=== PATIENT | female | born 1945 | race Caucasian/White ===

== ENCOUNTER 2017-02-18 08:34 | Day surgery (SDC) | payer MEDICARE, BC ==
[2017-02-16 10:43] VITALS: BMI 31.3
--- NOTE | 2017-02-18 08:21 | P.GSHP ---
History of Present Illness H&P Date: 02/18/17 CHIEF COMPLAINT: Colon screen HISTORY OF PRESENT ILLNESS: The patient is a 71-year-old female who presents for colon screen. Lower endoscopy was offered for further evaluation and management. PAST MEDICAL HISTORY: Please see list. PAST SURGICAL HISTORY: Please see list. MEDICATIONS: Please see list. ALLERGIES: Please see list. SOCIAL HISTORY: No illicit drug use FAMILY HISTORY: No reports of Crohn disease or ulcerative colitis. REVIEW OF ORGAN SYSTEMS: CONSTITUTIONAL: No reports of fevers or chills. PHYSICAL EXAM: VITAL SIGNS: Stable GENERAL: Well-developed pleasant in no acute distress. HEENT: No scleral icterus. Extraocular movements grossly intact. Moist buccal mucosa. NECK: Supple without lymphadenopathy. CHEST: Unlabored respirations. Equal bilateral excursions. CARDIOVASCULAR: Regular rate and rhythm. Distal 2+ pulses. ABDOMEN: Soft, nontender, nondistended. MUSCULOSKELETAL: No clubbing, cyanosis, or edema. ASSESSMENT: 1. Colon screen. PLAN: 1. Recommend proceeding with a lower endoscopy Past Medical History Past Medical History: Hypertension, Osteoarthritis (OA) History of Any Multi-Drug Resistant Organisms: None Reported Past Surgical History: Appendectomy, Joint Replacement Additional Past Surgical History / Comment(s): Both knees & hips replaced; cataracts; colonoscopy Past Anesthesia/Blood Transfusion Reactions: Postoperative Nausea & Vomiting ( PONV) Smoking Status: Never smoker Past Alcohol Use History: None Reported Past Drug Use History: None Reported - Past Family History Daughter(s) Family Medical History: Cancer Medications and Allergies Home Medications Medication Instructions Recorded Confirmed Type Ascorbic Acid [Vitamin C] 1,000 mg PO DAILY 02/16/17 02/16/17 History Lisinopril-Hctz 20-25 mg 1 tab PO DAILY 02/16/17 02/16/17 History [Zestoretic 20-25] Loratadine [Claritin] 10 mg PO DAILY 02/16/17 02/16/17 History Multivitamins, Thera [Multivitamin 1 tab PO DAILY 02/16/17 02/16/17 History (formulary)] Ubidecarenone [Co Q-10] 100 mg PO DAILY 02/16/17 02/16/17 History amLODIPine [Norvasc] 5 mg PO DAILY 02/16/17 02/16/17 History Allergies Allergy/AdvReac Type Severity Reaction Status Date / Time morphine AdvReac Unknown Verified 02/16/17 10:36 Penicillins AdvReac Unknown Verified 02/16/17 10:36 Childhood tramadol [From Ultram] AdvReac increased Verified 02/16/17 10:36 BP
[~2017-02-18 08:34] MED LIST: LACTATED RINGERS 1,000 ML IV SCH; LIDOCAINE 1% 20 ML VIAL (10MG/ML) FOR IV START INTRADERMA PRN
[2017-02-18 09:00] VITALS: TEMP 97.6
[2017-02-18] MEDS ORDERED: PROPOFOL 10 MG/ML 20 ML VIAL IV ONE (09:49)
[2017-02-18 10:47] VITALS: BP 110/72; PULSE 67; RESP 18
--- NOTE | 2017-02-18 10:48 | P.PCN ---
Date of Procedure: 02/18/17 Description of Procedure: PREOPERATIVE DIAGNOSIS: Colonoscopy screening. POSTOPERATIVE DIAGNOSIS: Colonoscopy screening. Multiple tubular adenomas. External hemorrhoids. OPERATION: Colonoscopy to the ileocecal valve and appendiceal orifice. Colonoscopy with snare polypectomy. Colonoscopy with cold forceps biopsy. SURGEON: Krissy Roberson MD. ANESTHESIA: MAC. INDICATIONS: The patient is a 71-year-old female who presents for colonoscopy screening. Her last colonoscopy was over 20 years ago. Benefits and risks were described and informed consent was obtained. DESCRIPTION OF PROCEDURE: The patient had undergone Gatorade, MiraLAX and Dulcolax prep. She had been brought into the operating room and laid in the left lateral decubitus position. After adequate intravenous sedation, the rectum was examined with 2% lidocaine jelly. External hemorrhoids were encountered. The rectal tone was within normal limits. No lesions were palpated in the rectal vault. An Olympus colonoscope was advanced until the ileocecal valve and appendiceal orifice were clearly viewed. The prep was excellent with clear visualization of the mucosal folds. The scope was removed with visualization of each mucosal fold. No moderate scattered diverticulosis was encountered. At the cecum, a 4 mm adenoma , tubulovillous type, was snare polypectomy. At 25 cm from the anal verge, a 6 mm tubular adenoma with snare polypectomy. At 22 cm, a 3 mm hyperplastic polyp was cold forceps biopsy. No evidence of focal colitis was found. Retroflexion of the scope demonstrated grade 2 internal hemorrhoids without active bleeding or inflammation. The colon was desufflated. The patient had tolerated the procedure well. Withdrawal time was over 6 minutes. FINDINGS: Internal hemorrhoids, grade 2. External prolapsed hemorrhoids, grade 2. No arteriovenous malformations. At the cecum, a 4 mm adenoma, tubulovillous type, was snare polypectomy. At 25 cm from the anal verge, a 6 mm tubular adenoma with snare polypectomy. At 22 cm, a 3 mm hyperplastic polyp was cold forceps biopsy. No focal colitis. No diffuse diverticulosis. RECOMMENDATIONS: Lower endoscopy in 2 years, 2019 for higher risk colon polyps. Plan - Discharge Summary Discharge Medication List Ascorbic Acid [Vitamin C] 1,000 mg PO DAILY 02/16/17 [History] Lisinopril-Hctz 20-25 mg [Zestoretic 20-25] 1 tab PO DAILY 02/16/17 [History] Loratadine [Claritin] 10 mg PO DAILY 02/16/17 [History] Multivitamins, Thera [Multivitamin (formulary)] 1 tab PO DAILY 02/16/17 [History ] Ubidecarenone [Co Q-10] 100 mg PO DAILY 02/16/17 [History] amLODIPine [Norvasc] 5 mg PO DAILY 02/16/17 [History] Follow up Appointment(s)/Referral(s): Krissy Roberson MD [STAFF PHYSICIAN] - 03/03/17 1:40 pm Patient Instructions/Handouts: *[facility] - (Anesthesia) Endoscopy Discharge Instructions, Colonoscopy (DC), Colorectal Polyps (GEN) Activity/Diet/Wound Care/Special Instructions: Follow-up colonoscopy in 2 years, 2019 Discharge Disposition: HOME SELF-CARE
== END 2017-02-18 11:06 | disposition home or self-care (01) ==
LOC: ORWHC2ENDO 08:34
PROVIDERS: ATTEND Surgery Plastic and Reconstructive Surgery
DX: Z12.11 Encounter for screening for malignant neoplasm of colon (principal); D12.0 Benign neoplasm of cecum; D12.5 Benign neoplasm of sigmoid colon; K63.5 Polyp of colon; K64.1 Second degree hemorrhoids; I10 Essential (primary) hypertension; Z79.899 Other long term (current) drug therapy; Z88.5 Allergy status to narcotic agent; Z88.0 Allergy status to penicillin
CPT/HCPCS: 88305; 45380; 45385; J2704

== ENCOUNTER → 2017-08-07 | Outpatient (CLI) | payer MEDICARE, BC ==
--- NOTE | 2017-08-17 07:32 | MM ---
Reason for exam: screening (asymptomatic). Last mammogram was performed 2 years and 5 months ago. History: Patient is postmenopausal. Family history of breast cancer in maternal aunt. Physical Findings: A clinical breast exam by your physician is recommended on an annual basis and results should be correlated with mammographic findings. MG 3D Screening Mammo W/Cad Bilateral CC and MLO view(s) were taken. Prior study comparison: March 19, 2015, mammogram, performed at [facility]. November 02, 2013, mammogram, performed at [facility]. There are scattered fibroglandular densities. Stable benign appearing masses and calcifications. No suspicious abnormality. No significant changes when compared with prior studies. ASSESSMENT: Benign, BI-RAD 2 RECOMMENDATION: Routine screening mammogram of both breasts in 1 year.
== END | disposition home or self-care (01) ==
LOC: RADMAMWWP 16:16
PROVIDERS: ATTEND Family Medicine
DX: Z12.31 Encounter for screening mammogram for malignant neoplasm of breast (principal)
CPT/HCPCS: 77063; G0202

== ENCOUNTER → 2018-08-31 | Outpatient (CLI) | payer MEDICARE, BC ==
--- NOTE | 2018-09-02 10:02 | MM ---
Reason for exam: screening (asymptomatic). Last mammogram was performed 1 year and 1 month ago. History: Patient is postmenopausal. Family history of breast cancer in maternal aunt. MG 3D Screening Mammo W/Cad Bilateral CC and MLO view(s) were taken. Prior study comparison: August 07, 2017, bilateral MG 3d screening mammo w/cad. March 19, 2015, mammogram, performed at [facility]. There are scattered fibroglandular densities. No significant changes when compared with prior studies. ASSESSMENT: Benign, BI-RAD 2 RECOMMENDATION: Routine screening mammogram of both breasts in 1 year.
== END | disposition home or self-care (01) ==
LOC: RADMAMWWP 13:34
PROVIDERS: ATTEND Family Medicine
DX: Z12.31 Encounter for screening mammogram for malignant neoplasm of breast (principal)
CPT/HCPCS: 77063; 77067

== ENCOUNTER → 2019-11-18 | Outpatient (CLI) | payer MEDICARE, BC ==
--- NOTE | 2019-11-21 14:35 | MM ---
Reason for exam: screening (asymptomatic). Last mammogram was performed 1 year and 3 months ago. History: Patient is postmenopausal. Family history of breast cancer in maternal aunt. Physical Findings: A clinical breast exam by your physician is recommended on an annual basis and results should be correlated with mammographic findings. MG 3D Screening Mammo W/Cad Bilateral CC and MLO view(s) were taken. Prior study comparison: August 31, 2018, bilateral MG 3d screening mammo w/cad. August 07, 2017, bilateral MG 3d screening mammo w/cad. The breast tissue is heterogeneously dense. This may lower the sensitivity of mammography. Stable benign calcifications. There is no discrete abnormality. No significant changes when compared with prior studies. ASSESSMENT: Benign, BI-RAD 2 RECOMMENDATION: Routine screening mammogram of both breasts in 1 year.
== END | disposition home or self-care (01) ==
LOC: RADMAMWWP 13:59
PROVIDERS: ATTEND Family Medicine
DX: Z12.31 Encounter for screening mammogram for malignant neoplasm of breast (principal)
CPT/HCPCS: 77063; 77067

== ENCOUNTER → 2020-07-05 | Outpatient (CLI) | payer MEDICARE, BC ==
--- NOTE | 2020-07-09 18:19 | BD ---
EXAMINATION TYPE: Axial Bone Density DATE OF EXAM: 07/05/2020 COMPARISON: NONE CLINICAL HISTORY: Postmenopausal screening Height: 66 Weight: 198.7 FRAX RISK QUESTIONS: Alcohol (3 or more units per day): no Family History (Parent hip fracture): no Glucocorticoids (More than 3mos): no (Ex: prednisone, prednisolone, methylprednisolone, dexamethasone, and hydrocortisone). History of Fracture in Adulthood: yes Secondary Osteoporosis: 1. Type 1 Diabetes: no 2. Hyperthyroidism: no 3. Menopause before 45: no 4. Malnutrition: no 5. Chronic liver disease: no Rheumatoid Arthritis: no Current Tobacco Use: no RISK FACTORS HISTORY OF: Surgery to Spine/Hip(right/left)/Wrist (right/left): bilateral hip surgery When: Family History of Osteoporosis: yes Active: yes Diet low in dairy products/other sources of calcium: no Postmenopausal woman: age 53 Lost more than 2 inches in height since high school: just about 2 inches MEDICATIONS: metformin, cholesterol meds, lisinopril, Norvasc, water pil Additional History: EXAM MEASUREMENTS: Bone mineral densitometry was performed using the MOOVIA System. Bone mineral density as measured about the Lumbar spine is: ----- L1-L4(G/cm2): 1.360 T Score Values are as follows: ----- L2: 1.3 ----- L3: 1.5 ----- L4: 2.2 ----- L1-L4: 1.5 Bone mineral density : baseline Bone mineral density about the L Wrist (g/cm2): 0.677 T Score values are as follows: -----Dist. RDU: -0.3 -----Prox. RDU: -0.3 -----Radius total: 0.0 Bone mineral density : baseline IMPRESSION: Normal (Values between +1 and -1 indicate normal bone mass). Consider repeating this study in 5 year s or sooner if there is some new clinical indication. NOTE: T-SCORE=SD OF THE YOUNG ADULT MEAN.
== END | disposition home or self-care (01) ==
LOC: RADBDWWP 16:03
PROVIDERS: ATTEND Family Medicine
DX: Z78.0 Asymptomatic menopausal state (principal)
CPT/HCPCS: 77080

== ENCOUNTER → 2021-02-07 | Outpatient (CLI) | payer MEDICARE, BC ==
--- NOTE | 2021-02-11 10:34 | MM ---
Reason for exam: screening (asymptomatic). Last mammogram was performed 1 year and 3 months ago. History: Patient is postmenopausal. Family history of breast cancer in maternal aunt. Physical Findings: A clinical breast exam by your physician is recommended on an annual basis and results should be correlated with mammographic findings. MG 3D Screening Mammo W/Cad Bilateral CC and MLO view(s) were taken. Prior study comparison: November 18, 2019, bilateral MG 3d screening mammo w/cad. August 31, 2018, bilateral MG 3d screening mammo w/cad. There are scattered fibroglandular densities. There is chronic nodularity bilaterally. Benign vascular oil cyst and dystrophic calcifications all redemonstrated. No significant changes when compared with prior studies. ASSESSMENT: Benign, BI-RAD 2 RECOMMENDATION: Routine screening mammogram of both breasts in 1 year.
== END | disposition home or self-care (01) ==
LOC: RADMAMWWP 13:45
PROVIDERS: ATTEND Family Medicine
DX: Z12.31 Encounter for screening mammogram for malignant neoplasm of breast (principal)
CPT/HCPCS: 77063; 77067

== ENCOUNTER 2021-04-29 15:28 | Inpatient (IN) | payer MEDICARE, BC ==
[2021-04-29] MEDS ORDERED: LIDOCAINE 1% INJ 10MG/ML (20 ML MDV) SQ ONE (15:45)
[2021-04-29] MEDS ORDERED: IV FLUID CONTINUATION 1,000 ML IV ONE (15:46)
[2021-04-29] MEDS ORDERED: LIDOCAINE 1% INJ 10MG/ML (20 ML MDV) ONE (15:47)
[2021-04-29] MEDS ORDERED: ONDANSETRON 4 MG/2 ML VIAL ONE ×2 (15:51→16:44)
[2021-04-29] MEDS ORDERED: ONDANSETRON 4 MG/2 ML VIAL IVP ONE (15:53)
[2021-04-29] MEDS ORDERED: HEPARIN SODIUM 1,000 UN/ML (10ML VL) ONE (15:59)
[2021-04-29] MEDS ORDERED: niCARdipine 25 MG/10 ML VIAL ONE (16:37)
[2021-04-29] MEDS: MIDAZOLAM 2 MG/2 ML VIAL IV ONE ×3 (16:51→18:19)
[2021-04-29] MEDS ORDERED: fentaNYL (PF) 50 MCG/ML 2 ML AMP ONE (16:56)
[2021-04-29] MEDS: fentaNYL (PF) 50 MCG/ML 2 ML AMP IV ONE ×4 (16:57→18:19)
[2021-04-29] MEDS ORDERED: IOPAMIDOL-370 125ML BTL INJ ONE (17:24)
[2021-04-29] MEDS ORDERED: HYDROmorphone 0.5 MG/0.5 ML SYRINGE IVP ONE (19:26)
[2021-04-29] MEDS ORDERED: CLOPIDOGREL 75 MG TAB ONE (19:39)
[2021-04-29] MEDS ORDERED: CLOPIDOGREL 75 MG TAB PO ONE (19:44)
[2021-04-29] MEDS ORDERED: IOPAMIDOL-370 100ML BTL INJ ONE (19:45)
[2021-04-29] MEDS ORDERED: ZOLPIDEM 5 MG TAB PO PRN (19:57)
[2021-04-29] MEDS ORDERED: RX INFO: IV CONTRAST WAS GIVEN 1 EACH MISC MISCELLANE PRN (19:57)
[2021-04-29] MEDS ORDERED: ATROPINE SULFATE 0.1 MG/ML 10ML SYRINGE IV PRN (19:57)
[2021-04-29] MEDS ORDERED: NITROGLYCERIN SL TABS 0.4 MG TAB SUBLINGUAL PRN (19:57)
[2021-04-29] MEDS ORDERED: MAG HYDROX/AL HYDROX/SIMETH 30 ML CUP PO PRN (19:57)
[2021-04-29] MEDS ORDERED: SODIUM CHLORIDE 0.9% 1,000 ML IV SCH (20:00)
[2021-04-29 20:32] LABS: Glucose,Whole Blood 188 mg/dL (75-99)
[2021-04-29] MEDS ORDERED: MIDAZOLAM 1 MG/ML 5 ML VIAL IV PRN (20:56)
[2021-04-29] MEDS ORDERED: ONDANSETRON 4 MG/2 ML VIAL IVP PRN (20:57)
--- NOTE | 2021-04-29 21:37 | ED ---
Chest Pain HPI - General Chief Complaint: Chest Pain - History of Present Illness Initial Comments: Patient is a 75-year-old female who is transferred from an outside hospital for an inferior wall ST segment elevation myocardial infarction. Story from outside facilities that the patient has had chest pain for one hour now that is unrelenting. Vital signs have remained stable. EKG revealed ST segment elevations and II, III, aVF as well as aVL depressions. This spoke with c ardiology at our facility who accepted the patient for cardiac cath. The bolused heparin. They therefore transferred her answers condition via ambulance for cardiac catheterization. - Related Data Home Medications Medication Instructions Recorded Confirmed Lisinopril-Hctz 20-25 mg 1 tab PO DAILY 02/16/17 04/29/21 [Zestoretic 20-25] amLODIPine [Norvasc] 5 mg PO DAILY 02/16/17 04/29/21 Atorvastatin [Lipitor] 10 mg PO DAILY 04/29/21 04/29/21 metFORMIN HCL [Glucophage] 500 mg PO BID 04/29/21 04/29/21 Allergies Allergy/AdvReac Type Severity Reaction Status Date / Time morphine AdvReac Unknown Verified 04/29/21 18:18 Penicillins AdvReac Unknown Verified 04/29/21 18:18 Childhood tramadol [From Ultram] AdvReac increased Verified 04/29/21 18:18 BP Review of Systems ROS Statement: Those systems with pertinent positive or pertinent negative responses have been documented in the HPI. ROS Other: All systems not noted in ROS Statement are negative. Past Medical History Past Medical History: Hypertension, Osteoarthritis (OA) History of Any Multi-Drug Resistant Organisms: None Reported Past Surgical History: Appendectomy, Joint Replacement Additional Past Surgical History / Comment(s): Both knees & hips replaced; cataracts; colonoscopy Past Anesthesia/Blood Transfusion Reactions: Postoperative Nausea & Vomiting (PONV) Past Alcohol Use History: None Reported Past Drug Use History: None Reported - Past Family History Daughter(s) Family Medical History: Cancer General Exam - General Exam Comments Initial Comments: Patient was briefly assessed upon arrival to the emergency department and was in no obvious distress. States her chest pain was under control. Vital signs are stable. Procedures - [place] Protocol (Time Out) Patient Identification (2 identifiers required): Arm Band, Name, Birthdate Patient/Legal Official Court Reporter has Confirmed: Identity, Procedure, Consent Site Marked: Not Applicable Chest Pain MDM - MDM Patient was transferred from an outside hospital for an inferior wall ST segment elevation myocardial infarction. Cardiology is aware the patient. Activated the lab assistant prior to arrival. Patient briefly was evaluated in the emergency Department for stability. Vital signs are stable and she was in no acute distress. Patient was therefore transferred to the catheterization lab in serious condition. She will be admitted following her catheterization. Disposition Clinical Impression: ST elevation myocardial infarction (STEMI) of inferior wall, Chest pain Disposition: ADMITTED IP TO THIS HOSP Condition: Serious
[2021-04-29] MEDS: METOPROLOL TARTRATE 25 MG TAB PO SCH (22:15)
[2021-04-29] MEDS: ATORVASTATIN 80 MG TAB PO SCH (22:15)
[2021-04-29 23:12] LABS: Glucose,Whole Blood 173 mg/dL (75-99)
[2021-04-29] MEDS: INSULIN ASPART (NovoLOG) 100 UNIT/ML VIAL SQ SCH (23:19)
[2021-04-30 04:01] LABS: HCT 32.5 % (34.0-46.0); HGB 11.5 gm/dL (11.4-16.0); MCH 34.8 pg (25.0-35.0); MCHC 35.5 g/dL (31.0-37.0); MCV 97.9 fL (80.0-100.0); Mean Platelet Volume 7.5; Platelet Count 257 k/uL (150-450); RBC 3.32 m/uL (3.80-5.40); RDW 12.4 % (11.5-15.5); WBC 8.8 k/uL (3.8-10.6)
[2021-04-30 04:18] LABS: African American GFR (CKD) >90 (>60 ml/min/1.73 sqM); Anion Gap 11 mmol/L; Blood Urea Nitrogen 16 mg/dL (7-17); Calcium 8.7 mg/dL (8.4-10.2); Carbon Dioxide 24 mmol/L (22-30); Chloride 102 mmol/L (98-107); Glucose 130 mg/dL (74-99); Non-African American GFR(CKD) >90 (>60 ml/min/1.73 sqM); Potassium 3.6 mmol/L (3.5-5.1); Sodium 137 mmol/L (137-145)
--- NOTE | 2021-04-30 06:42 | CONS ---
CONSULTATION Mrs. Short is a 75-year-old female with a history of hypertension and diabetes and also arthritis, who presented to [facility] Emergency room with complaints of ongoing chest pain for more than an hour. EKG on arrival showed evidence of ST elevation in inferior leads suggestive of ST elevation myocardial infarction involving the inferior wall. The patient was [facility] and possible intervention. The patient was given aspirin and also Plavix along with heparin. No history of any previous myocardial infarction. Has not been seeing any video and sound recorder previously. 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 The patient seemed to be reasonably comfortable. Vital signs are stable. Proceed with cardiac catheterization for definitive diagnosis and further intervention. PAST MEDICAL HISTORY: Significant for hypertension and also [id number] diabetes mellitus. No history of previous myocardial infarction or stroke. CURRENT MEDICATIONS: Prior to admission included lisinopril hydrochlorothiazide 20/25 mg 1 tab daily, amlodipine 5 mg daily, Atorvastatin 10 mg daily and metformin 500 mg p.o. b.i.d. ALLERGIES: MORPHINE. FAMILY HISTORY: Positive for cancer. PAST SURGICAL HISTORY: The patient had a previous appendectomy and joint replacement. PHYSICAL EXAMINATION: GENERAL: Exam at this time reveals an elderly female who is alert, oriented, does not appear to be in acute distress. VITAL SIGNS: Stable. Heart rate is about 90-100, sinus rhythm. Blood pressure is about 120/70. NECK: Supple. HEART: S1 and S2 heard. LUNGS: Appear to be clear. ABDOMEN: Soft. EXTREMITIES: No significant edema. IMPRESSION: 1. Acute inferior wall myocardial infarction. 2. Hypertension. 3. [id number] diabetes mellitus. 4. History of arthritis. PLAN: Proceed with cardiac catheterization for definitive diagnosis. Further intervention as needed. Prognosis is guarded. MMODL / IJN: [id number] /
[2021-04-30 07:02] LABS: Glucose,Whole Blood 132 mg/dL (75-99)
--- NOTE | 2021-04-30 08:04 | XR ---
EXAMINATION TYPE: XR chest 1V DATE OF EXAM: 04/30/2021 CLINICAL HISTORY: Chest pain. TECHNIQUE: Portable semiupright view of the chest. COMPARISON: None FINDINGS: Elevation of the right hemidiaphragm. Low lung volumes accentuates the cardiomediastinal silhouette a nd lung markings. Cardiac size normal. Tortuous thoracic aorta. Pulmonary vasculature is normal. Left basilar mild atelectasis versus pericardial fat. No pleural effusion. No pneumothorax seen. Degener ative changes of the left shoulder. IMPRESSION: Low lung volumes accentuates the cardiomediastinal silhouette and lung markings. No acute cardiopulmo nary process.
[2021-04-30] MEDS: INSULIN ASPART (NovoLOG) 100 UNIT/ML VIAL SQ SCH ×4 (08:19→20:56)
[2021-04-30] MEDS: METOPROLOL TARTRATE 25 MG TAB PO SCH ×2 (08:25→20:56)
[2021-04-30] MEDS: ASPIRIN 81 MG PO SCH (08:25)
[2021-04-30] MEDS: TICAGRELOR 90 MG TAB PO SCH ×2 (08:25→20:56)
[2021-04-30] MEDS ORDERED: ASPIRIN 325 MG TAB PO SCH (09:00)
[2021-04-30] MEDS ORDERED: CLOPIDOGREL 75 MG TAB PO SCH (09:00)
--- NOTE | 2021-04-30 09:25 | P.PN ---
Subjective This is a 75-year-old female with a past medical history of hypertension, type 2 diabetes, arthritis. Patient was transferred from [facility] on 04/29/2021 due to ongoing chest pain for more than an hour. EKG revealed ST elevation in inferior leads suggestive ST elevation myocardial infarction involving inferior wall. Patient underwent cardiac catheterization with Dr. Edgar which revealed extremely calcified and tortuous RCA with a thrombotic lesion in the mid in the midportion in the range of 99.9%. Patient underwent PCI to distal RCA, mid RCA, and proximal RCA with Dr. Raza on 04/29/2021. 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 04/30/2021: Patient seen and examined at bedside in the ICU, no acute distress. She is lying comfortably. She denies any chest pain, shortness of breath, palpitations. Lab today revealed WBC 8.8, hemoglobin 11.5, platelets 257, sodium 137, potassium 3.6, BUN 16, serum creatinine 0.53. Blood pressure 105/64, heart rate 70, afebrile, maintaining oxygen saturations 97% on 2 L nasal cannula. Patient currently maintaining sinus mechanism. Patient currently maintained on aspirin 81 mg daily, atorvastatin 80 mg nightly, metoprolol tartrate 25 mg twice a day, Plavix 75 mg daily. GENERAL: Well-appearing, well-nourished and in no acute distress. NECK: Supple without JVD or thyromegaly. LUNGS: Breath sounds clear to auscultation bilaterally. Respiration equal and unlabored. No wheezes, rales or rhonchi. HEART: Regular rate and rhythm without murmurs, rubs or gallops. S1 and S2 heard. EXTREMITIES: Normal range of motion, no edema. No clubbing or cyanosis. Peripheral pulses intact 2+ Right Femoral Cath site- clean, dry, intact, no hematoma. NEURO: Patient is alert and oriented x 3. ASSESSMENT: Acute Inferior ST Elevation Myocardial Infarction s/p PCI x 3 to RCA on 04/29/2021 History of hypertension Type 2 Diabetes History of arthritis PLAN: We will switch patient from Plavix to Brilinta, will check cost with case management Continue aspirin, statin, beta la Continue cardiac telemetry Further recommendations based on clinical course Objective - Vital Signs Vital signs: Vital Signs Temp 98.1 F 04/30/21 04:00 Pulse 70 04/30/21 07:00 Resp 16 04/30/21 07:00 BP 105/64 04/30/21 07:00 Pulse Ox 97 04/30/21 07:00 Intake & Output 04/29/21 04/30/21 04/30/21 18:59 06:59 18:59 Intake Total 600 925 75 Output Total 900 50 Balance 600 25 25 Weight 90.265 kg 89.7 kg Intake: IV 600 750 75 Sodium Chloride 0.9% 1, 750 75 000 ml @ 75 mls/hr IV . [id number] SANDI Rx#:[id number] Oral 175 Output: Urine 900 50 Other: Voiding Method Indwelling Catheter ABP, PAP, CO, CI - Last Documented Arterial Blood Pressure 119/61 - Labs CBC & Chem 7: 04/30/21 03:34 04/30/21 03:34 Labs: Abnormal Lab Results - Last 24 Hours (Table) 04/29/21 04/29/21 04/30/21 Range/Units 20:31 23:11 03:34 RBC (3.80-5.40) m/uL Hct (34.0-46.0) % Glucose 130 H (74-99) mg/dL POC Glucose (mg/dL) 188 H 173 H (75-99) mg/dL 04/30/21 04/30/21 Range/Units 03:34 07:01 RBC 3.32 L (3.80-5.40) m/uL Hct 32.5 L (34.0-46.0) % Glucose (74-99) mg/dL POC Glucose (mg/dL) 132 H (75-99) mg/dL
--- NOTE | 2021-04-30 09:30 | PTCA ---
PERCUTANEOUSTRANS CORORONARY ANGIOGRAPHY DATE OF PROCEDURE: 04/29/2021 PERFORMING PHYSICIAN: Ranjit Raza MD. PROCEDURE PERFORMED: 1. Successful stenting of the distal right coronary artery using a 3.5 x 8 mm Xience drug-eluting stent with an excellent angiographic result. 2. Successful stenting of the mid RCA using 3.5 x 15 mm Xience drug-eluting stent with an excellent angiographic result. 3. Successful stenting of the proximal right coronary artery using a 3.5 x 23 mm Xience drug-eluting stent with an excellent angiographic result. 4. Selective right common femoral artery angiogram. INDICATION: This is a 75-year-old female patient with diabetes and hypertension and dyslipidemia who presented initially to [facility] with chest discomfort and she was ruled in for acute coronary syndrome with acute inferior ST-elevation myocardial infarction. Subsequently, she was seen and evaluated by Dr. Edgar who performed a heart catheterization and that revealed extremely calcified and tortuous right coronary artery with a thrombotic lesion in the mid in the midportion, appeared to be in the range of 99.9%. APPROACH: Right common femoral artery. COMPLICATION: None. LEVEL OF SEDATION: Moderate with sedation length of 3 hours and 48 minutes. Door to balloon was 114 minutes. PROCEDURE DESCRIPTION: Please refer to diagnostic heart catheterization that was performed by Dr. Edgar earlier today. Anticoagulation was initiated using heparin with continuous ACT monitoring throughout the procedure and the patient was given in the beginning a total of 10,000 units of heparin IV. After that, I did try to engage the right coronary artery using an All right guiding catheter, but that did not work, and because of that, I decided to use an XB right. With that, I was able to engage the right coronary artery, where I did wire the right coronary artery using a Whisper wire. In attempting advancing any balloon, even 1.5 mm balloon over that wire, was unsuccessful. I attempted advancing the balloon even using a GuideLiner and that was unsuccessful. At that point, I decided to wire the right coronary artery using a arvind wire with the Whisper wire and that was an Ironman. The Ironman was advanced all the way to the distal right coronary artery. Subsequently, I attempted balloon angioplasty again using initially 1 mm balloon, but the balloon ruptured and subsequently, I did well balloon angioplasty of the proximal mid and distal right coronary artery using 1.5 mm, then 2 mm, then 2.5 mm, then 3 0 mm balloon. Attempting advancing the stent was unsuccessful and unfortunately at that point, the wires came out and pulled the guide out. At that point, I decided to go ahead and engage the RCA using a better support guide and I did engage this time using an AL 0.75 guide. Again, I rewired the right coronary artery using, initially, a Whisper wire. Subsequently, a run-through wire. At that point, attempting advancing the stent and that was 3 5 x 23 mm Xience drug-eluting stent was unsuccessful again, and the stent will not cross from the proximal to the mid right coronary artery. At that point, I decided to go ahead and deploy the stent in the proximal right coronary artery. The stent was positioned under fluoroscopic guidance and deployed under fluoroscopic guidance. It was deployed under 18 atmospheres for 20 seconds. At that point, I decided to try a shorter stent. At that point, I tried Xience 15 mm, but the stent will not cross, as well. I decided, at that point, to go ahead and try an [place] stent, and unfortunately the Narayan stent dislodged from the balloon. That was over the Whisper wire. At that point, the arvind wire was an Ironman. So I decided to finish everything over the Ironman. I did crush the stent over a 3 0 x 15 mm balloon. Subsequently, using 4 mm noncompliant balloon, I did balloon angioplasty of the right coronary artery distally, as well as in the mid and proximal portion. Luckily, I was able to advance 3 0 x 15 mm stent to the mid right coronary artery where the stent again was positioned under fluoroscopic guidance and deployed under its nominal pressure. For the lesion in the distal right coronary artery, after multiple attempt, I was able to advance 3 5 x 8 mm Xience drug-eluting stent, where the stent was positioned under fluoroscopic guidance again and deployed under 18 atmospheres for 20 seconds. Finally, I decided to post dilate the whole area of the right coronary artery using 4.0 mm balloon. Unfortunately, that was unsuccessful, simply because the balloon will not cross the mid right coronary artery because the RCA is extremely calcified, as well as tortuous. At that point, I decided to stop. Please note by the end, we achieved CHRISTOPHER-3 flow. The flow was CHRISTOPHER-3 flow in the right coronary artery. POSTPROCEDURE MANAGEMENT: 1. Dual anti-platelet therapy. 2. Aggressive cholesterol control. 3. Risk factor modifications, to follow up with the patient. MALVIN / SUZANNEN: [id number] /
--- NOTE | 2021-04-30 10:33 | ECHOF ---
Referral Reason:ACS MEASUREMENTS -------- HEIGHT: 170.2 cm WEIGHT: 89.4 kg BP: 96/68 IVSd: 1.4 cm (0.6 - 1.1) LVIDd: 4.1 cm (3.9 - 5.3) LVPWd: 1.4 cm (0.6 - 1.1) EDV(Teich): 73 ml IVSs: 1.6 cm LVIDs: 2.9 cm LVPWs: 1.6 cm %IVS Thck: 14 % ESV(Teich): 31 ml EF(Teich): 57 % %FS: 30 % SV(Teich): 42 ml LA Diam: 3.3 cm (2.7 - 3.8) RVIDd: 3.3 cm (< 3.3) LALs A4C: 5.0 cm LAAs A4C: 17.0 cm LAESV A-L A4C: 50 ml LAESV MOD A4C: 47 ml LALs A2C: 5.6 cm LAAs A2C: 15.1 cm LAESV A-L A2C: 35 ml LAESV MOD A2C: 33 ml LAESV(A-L): 44 ml LAESV Index (A-L): 21.93 ml/m Ao Diam: 3.2 cm (2.0 - 3.7) AV Cusp: 2.1 cm (1.5 - 2.6) EPSS: 1.1 cm MV E Isidro: 0.76 m/s MV DecT: 307 ms MV Dec [place]: 2.5 m/s MV A Isidro: 1.03 m/s MV E/A Ratio: 0.73 MV PHT: 89 ms AV Vmax: 1.22 m/s AV maxP.95 mmHg TR Vmax: 2.38 m/s TR maxP.64 mmHg RAP: 5.00 mmHg RVSP: 27.64 mmHg MV EF SLOPE: 32.45 mm/s (70 - 150) MV EXCURSION: 14.23 mm (> 18.000) FINDINGS -------- Sinus rhythm. This was a technically adequate study. The left ventricular size is normal. There is moderate concentric left ventricular hypertrophy. O verall left ventricular systolic function is low-normal with, an EF between 50 - 55 %. Basal inferi or LV wall motion is hypokinetic. Apical septum LV wall motion is hypokinetic. The right ventricle is mildly enlarged. Normal LA size by volume 22+/-6 ml/m2. The right atrium is normal in size. 5 ml of Lumason was utilized for enhancement of images. Interatrial and interventricular septum intact. The aortic valve is trileaflet, and appears structurally normal. No aortic stenosis or regurgitation. Mild mitral annular calcification present. Mild tricuspid regurgitation present. Right ventricular systolic pressure is normal at < 35 mmHg. There is no pulmonic regurgitation present. The aortic root size is normal. 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 There is no pericardial effusion. CONCLUSIONS -------- 1. The left ventricular size is normal. 2. There is moderate concentric left ventricular hypertrophy. 3. Overall left ventricular systolic function is low-normal with, an EF between 50 - 55 %. 4. Basal inferior LV wall motion is hypokinetic. 5. Apical septum LV wall motion is hypokinetic. 6. The right ventricle is mildly enlarged. 7. 5 ml of Lumason was utilized for enhancement of images. 8. The aortic valve is trileaflet, and appears structurally normal. No aortic stenosis or regurgitati on. 9. Mild mitral annular calcification present. 10. Mild tricuspid regurgitation present. 11. 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 There is no pericardial effusion. TAXICAB DISPATCHER: Lourdes Rosales [facility]
--- NOTE | 2021-04-30 11:28 | P.CARDCATH ---
Date of Procedure: 04/29/21 Preoperative Diagnosis: Acute inferior wall myocardial infarction Postoperative Diagnosis: Subtotal occlusion of the mid RCA. The long lesion filled with clot and also very calcified and tortuous Procedure(s) Performed: Left heart catheterization without left ventriculography Description of Procedure: HISTORY: This is 75-year-old female who presented to emergency room of the [facility] with complaints of chest pain and EKG evidence of inferior wall OH. Patient is transferred to this facility for further intervention. Patient is advised to have a cardiac catheterization with the intention off Premarin intervention CONSENT:I have discussed the risks, benefits and alternative therapies for the above-mentioned procedure and for both sedation/analgesia as well as necessary blood product administration, if indicated, as they pertain to this patient. The patient has indicated understanding and acceptance of the risks and procedures discussed. PROCEDURE: Patient was brought to the lab in a fasting state. Patient was given some IV sedation. The right groin is infiltrated with lidocaine and right femoral artery was entered using Seldinger technique. A 6-Amharic catheter was left in place and selective coronary arteriography was performed. Patient tolerated the procedure well. No immediate complications were noted and patient went on to have stent placement the RCA by Dr. Reyes Conscious Sedation: Versed 0mg Fentanyl 0 g Duration 14minutes HEMODYNAMICS: The aortic pressure is about 110/70. Left ventricular end- diastolic pressure was not measured SELECTIVE CORONARY ARTERIOGRAPHY: LEFT MAIN: This is a moderate caliber vessel with areas of ectasia and mild distal disease with 30% luminal narrowing THE LEFT ANTERIOR DESCENDING CORONARY ARTERY:. This is a good caliber vessel with ectatic changes and mild disease in the proximal and midportion. It gives rise to moderate caliber diagonal branches. The first diagonal branch is good in caliber. No critical lesion in the LAD system THE LEFT CIRCUMFLEX AND IS CORONARY ARTERY: Relatively nondominant system. Mild disease which is diffuse without any critical lesion THE RIGHT CORONARY ARTERY:. This is a dominant vessel which is heavily calcified and tortuous. There is subtotal occlusion of the mid RCA with areas of filling defects. There is CHRISTOPHER-3 flow into the distal RCA which also shows diffuse disease without any critical lesions LEFT VENTRICULOGRAPHY: Not performed FINAL IMPRESSION: Critical lesion which is long calcified filled with thrombus in the proximal and mid RCA. Mild disease in the left coronary system PLAN: Stent placement of the RCA to be done by Dr. Reyes PROGNOSIS: Guarded
[2021-04-30 11:37] VITALS: BMI 30.9
[2021-04-30 11:42] LABS: Glucose,Whole Blood 128 mg/dL (75-99)
--- NOTE | 2021-04-30 16:52 | P.PN ---
Progress Note - Text Progress Note Date: 04/30/21 Chief Complaint: Chest pain History of presenting complaint: This is a 75-year-old patient, follows with Dr. Pinon. Chronic stable medical conditions include diabetes, hypertension, hyperlipidemia. This afternoon patient developed chest pain about one hour before presentation for details. around the back then went on to the front going to the arms. Possible shortness of breath breaking out in sweat. Patient presented to [facility]. Patient is found to have ST elevation myocardial infarction. Transferred down here. Emergent cardiac catheterization showed occlusion to the RCA. Patient received 3 stents. Patient's currently low the lethargic from sedation and not able to give much of a history herself. 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 April 30: ICU. No chest pain no shortness of breath. Did sit up in a chair. Did tolerate her meals. Feeling better. Son is visiting. Review of systems: Was done for constitutional, cardiovascular, GI, pulmonary. relevant finding as above Active Medications Al Hydroxide/Mg Hydroxide (Mag Hydrox/Al Hydrox/Simeth 30 Ml Cup) 30 ml PO Q4HR PRN PRN Reason: Heartburn Aspirin (Aspirin 81 Mg) 81 mg PO DAILY [facility] Last Admin: 04/30/21 08:25 Dose: 81 mg Documented by: Atorvastatin Calcium (Atorvastatin 80 Mg Tab) 80 mg PO HS [facility] Last Admin: 04/29/21 22:15 Dose: Not Given Documented by: Atropine Sulfate (Atropine Sulfate 0.1 Mg/Ml 10ml Syringe) 0.5 mg IV ONCE PRN PRN Reason: Symptomatic Bradycardia Insulin Aspart (Insulin Aspart (Novolog) 100 Unit/Ml Vial) 0 unit SQ [facility]; Protocol Last Admin: 04/30/21 15:22 Dose: Not Given Documented by: Metoprolol Tartrate (Metoprolol Tartrate 25 Mg Tab) 25 mg PO BID [facility] Last Admin: 04/30/21 08:25 Dose: 25 mg Documented by: Midazolam HCl (Midazolam 1 Mg/Ml 5 Ml Vial) 5 mg IV ONCE PRN PRN Reason: MODERATE PAIN Miscellaneous Information (Rx Info: Iv Contrast Was Given 1 Each Misc) 1 each MISCELLANE DAILY PRN PRN Reason: Per Protocol Stop: 05/01/21 19:57 Nitroglycerin (Nitroglycerin Sl Tabs 0.4 Mg Tab) 0.4 mg SUBLINGUAL Q5M PRN PRN Reason: Chest Pain Ondansetron HCl (Ondansetron 4 Mg/2 Ml Vial) 4 mg IVP Q6HR PRN PRN Reason: Nausea And Vomiting Last Admin: 04/29/21 21:10 Dose: 4 mg Documented by: Ticagrelor (Ticagrelor 90 Mg Tab) 90 mg PO BID [facility] Last Admin: 04/30/21 08:25 Dose: 90 mg Documented by: Zolpidem Tartrate (Zolpidem 5 Mg Tab) 5 mg PO HS PRN PRN Reason: Insomnia Past medical history to include: Diabetes, hypertension, hyperlipidemia Social history: Patient lives with her long-standing partner Dania. No history of smoking and alcohol Family history: Cannot obtain Physical examination: VITAL SIGNS: In, 110/71, 94% room air GENERAL: Declining in bed, awake, comfortable EYES: Pupils equal. Conjunctiva normal. HEENT: External appearance of nose and ears normal, oral cavity grossly normal. NECK: JVD not raised; masses not palpable. HEART: First and second heart sounds are normal; no edema. LUNGS: Respiratory rate normal; clear to auscultation. ABDOMEN: Soft, nontender, liver spleen not palpable, no masses palpable. PSYCH: Sleepy somnolent he would answer some questionsl. INVESTIGATIONS, reviewed in the clinical context: April 30: WBC 8.8 hemoglobin 11.5 potassium 3.6 creatinine 0.53 2-D echocardiogram: Moderate concentric LVH. EF 50-55%. Wall motion abnormality noted. Labs from [facility]: Sodium 141 potassium 3.4 BUN 17 and creatinine 1.0 white count 7.8 hemoglobin 12.7 platelets 311 Troponin I 0.265 EKG tracing personally reviewed by me-ST elevation in inferior leads and reciprocal changes in anterior leads Assessment and plan: -Acute ST elevation myocardial infarction Emergency angioplasty stent of the RCA. Aspirin, Lipitor, Plavix, Lopressor -Diabetes mellitus type 2, on oral hypoglycemic Follow Accu-Cheks -Essential hypertension On Lopressor -Hyperlipidemia On Lipitor -Obesity BMI 31.2 Dietitian Care was discussed with the son and the patient the bedside. Questions answered. Increase activity as tolerated. Per cardiology Plavix is being changed over to Brilinta
[2021-04-30 16:57] LABS: Glucose,Whole Blood 193 mg/dL (75-99)
[2021-04-30 20:43] LABS: Glucose,Whole Blood 136 mg/dL (75-99)
[2021-04-30] MEDS: ATORVASTATIN 80 MG TAB PO SCH (20:56)
[2021-05-01 03:49] LABS: HCT 33.4 % (34.0-46.0); MCH 32.8 pg (25.0-35.0); MCHC 33.1 g/dL (31.0-37.0); MCV 99.2 fL (80.0-100.0); Mean Platelet Volume 7.2; Platelet Count 252 k/uL (150-450); RBC 3.36 m/uL (3.80-5.40); RDW 13.1 % (11.5-15.5); WBC 8.9 k/uL (3.8-10.6)
[2021-05-01 04:15] LABS: African American GFR (CKD) >90 (>60 ml/min/1.73 sqM); Anion Gap 8 mmol/L; Blood Urea Nitrogen 17 mg/dL (7-17); Calcium 9.1 mg/dL (8.4-10.2); Carbon Dioxide 28 mmol/L (22-30); Chloride 102 mmol/L (98-107); Glucose 128 mg/dL (74-99); Non-African American GFR(CKD) 84 (>60 ml/min/1.73 sqM); Potassium 3.6 mmol/L (3.5-5.1); Sodium 138 mmol/L (137-145)
[2021-05-01 06:54] LABS: Glucose,Whole Blood 135 mg/dL (75-99)
[2021-05-01] MEDS: INSULIN ASPART (NovoLOG) 100 UNIT/ML VIAL SQ SCH ×4 (07:48→21:34)
[2021-05-01] MEDS: ASPIRIN 81 MG PO SCH (08:45)
[2021-05-01] MEDS: TICAGRELOR 90 MG TAB PO SCH ×2 (08:45→19:41)
[2021-05-01] MEDS: METOPROLOL TARTRATE 25 MG TAB PO SCH ×2 (08:45→19:41)
--- NOTE | 2021-05-01 09:49 | P.PN ---
Subjective This is a 75-year-old female with a past medical history of hypertension, type 2 diabetes, arthritis. Patient was transferred from [facility] on 04/29/2021 due to ongoing chest pain for more than an hour. EKG revealed ST elevation in inferior leads suggestive ST elevation myocardial infarction involving inferior wall. Patient underwent cardiac catheterization with Dr. Edgar which revealed extremely calcified and tortuous RCA with a thrombotic lesion in the mid in the midportion in the range of 99.9%. Patient underwent PCI to distal RCA, mid RCA, and proximal RCA with Dr. Raza on 04/29/2021. 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 05/01/2021: Patient seen and examined at bedside in the ICU, no acute distress. She is lying comfortably. She denies any chest pain, shortness of breath, palpitations. Lab today revealed WBC 8.9, hemoglobin 11.0, platelets 252, sodium 138, potassium 3.6, BUN 17, serum creatinine 0.69. Blood [id number]/72, heart rate 80, afebrile, maintaining oxygen saturations 95% on room air. Patient currently maintaining sinus mechanism. Patient currently maintained on aspirin 81 mg daily, atorvastatin 80 mg nightly, metoprolol tartrate 25 mg twice a day, Brilinta 90mg BID GENERAL: Well-appearing, well-nourished and in no acute distress. NECK: Supple without JVD or thyromegaly. LUNGS: Breath sounds clear to auscultation bilaterally. Respiration equal and unlabored. No wheezes, rales or rhonchi. HEART: Regular rate and rhythm without murmurs, rubs or gallops. S1 and S2 heard. EXTREMITIES: Normal range of motion, no edema. No clubbing or cyanosis. Peripheral pulses intact 2+ Right Femoral Cath site- clean, dry, intact, no hematoma. NEURO: Patient is alert and oriented x 3. ASSESSMENT: Acute Inferior ST Elevation Myocardial Infarction s/p PCI x 3 to RCA on 04/29/2021 History of hypertension Type 2 Diabetes History of arthritis PLAN: Continue dual antiplatelet therapy with aspirin and Brilinta will check cost with case management Continue, statin, beta la Continue cardiac telemetry Will continue monitor patient today, if continues to be stable and no acute events, hopefully discharge tomorrow. Further recommendations based on clinical course On discharge, patient will follow up with Dr. Edgar as an outpatient. Objective - Vital Signs Vital signs: Vital Signs Temp 98.2 F 05/01/21 04:00 Pulse 80 05/01/21 08:00 Resp 20 05/01/21 08:00 BP 120/72 05/01/21 08:00 Pulse Ox 95 05/01/21 08:00 Intake & Output 04/30/21 05/01/21 05/01/21 18:59 06:59 18:59 Intake Total 900 150 150 Output Total 250 500 Balance 650 -350 150 Weight 89.7 kg 93.6 kg Intake: IV 150 Sodium Chloride 0.9% 1, 150 000 ml @ 75 mls/hr IV . [id number] [facility] Rx#:[id number] Oral 750 150 150 Output: Urine 250 500 Other: Voiding Method Toilet Bedside Commode # Voids 1 0 0 ABP, PAP, CO, CI - Last Documented Arterial Blood Pressure 119/61 - Labs CBC & Chem 7: 05/01/21 03:31 05/01/21 03:31 Labs: Abnormal Lab Results - Last 24 Hours (Table) 04/30/21 04/30/21 04/30/21 Range/Units 11:41 16:56 20:41 RBC (3.80-5.40) m/uL Hgb (11.4-16.0) gm/dL Hct (34.0-46.0) % Glucose (74-99) mg/dL POC Glucose (mg/dL) 128 H 193 H 136 H (75-99) mg/dL 05/01/21 05/01/21 05/01/21 Range/Units 03:31 03:31 06:53 RBC 3.36 L (3.80-5.40) m/uL Hgb 11.0 L (11.4-16.0) gm/dL Hct 33.4 L (34.0-46.0) % Glucose 128 H (74-99) mg/dL POC Glucose (mg/dL) 135 H (75-99) mg/dL
[2021-05-01 11:35] LABS: Glucose,Whole Blood 123 mg/dL (75-99)
--- NOTE | 2021-05-01 15:29 | XR ---
EXAMINATION TYPE: XR chest 1V portable DATE OF EXAM: 05/01/2021 HISTORY: Shortness of breath. COMPARISON: 04/30/2021 TECHNIQUE: Single view of the chest is submitted. FINDINGS: Demonstrated are scattered senescent parenchymal change. There is no evidence for focal infiltrate. The heart is stable. Continued Prominence of the aortic arch. Hilar and mediastinal structures are within normal limits. Degenerative changes are seen of the dorsal spine. IMPRESSION: 1. Chronic changes without evidence for acute pulmonary disease.
[2021-05-01 16:43] LABS: Glucose,Whole Blood 129 mg/dL (75-99)
--- NOTE | 2021-05-01 19:30 | P.PN ---
Progress Note - Text Progress Note Date: 05/01/21 Chief Complaint: Chest pain History of presenting complaint: This is a 75-year-old patient, follows with Dr. Pinon. Chronic stable medical conditions include diabetes, hypertension, hyperlipidemia. This afternoon patient developed chest pain about one hour before presentation for details. around the back then went on to the front going to the arms. Possible shortness of breath breaking out in sweat. Patient presented to [facility]. Patient is found to have ST elevation myocardial infarction. Transferred down here. Emergent cardiac catheterization showed occlusion to the RCA. Patient received 3 stents. Patient's currently low the lethargic from sedation and not able to give much of a history herself. 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 April 30: ICU. No chest pain no shortness of breath. Did sit up in a chair. Did tolerate her meals. Feeling better. Son is visiting. May 01: Feeling better. Patient did have some chest pressure.. Oral intake fair. Did walk a bit. Spoke to the patient to let the nurse know and cardi ology will be informed about the same. Review of systems: Was done for constitutional, cardiovascular, GI, pulmonary. relevant finding as above Active Medications Al Hydroxide/Mg Hydroxide (Mag Hydrox/Al Hydrox/Simeth 30 Ml Cup) 30 ml PO Q4HR PRN PRN Reason: Heartburn Last Admin: 05/01/21 17:55 Dose: 30 ml Documented by: Aspirin (Aspirin 81 Mg) 81 mg PO DAILY [facility] Last Admin: 05/01/21 08:45 Dose: 81 mg Documented by: Atorvastatin Calcium (Atorvastatin 80 Mg Tab) 80 mg PO [facility] Last Admin: 04/30/21 20:56 Dose: 80 mg Documented by: Atropine Sulfate (Atropine Sulfate 0.1 Mg/Ml 10ml Syringe) 0.5 mg IV ONCE PRN PRN Reason: Symptomatic Bradycardia Lisinopril/HCTZ (Lisinopril-Hctz 20-25 Mg 1 Each Tab) 1 each PO DAILY [facility] Insulin Aspart (Insulin Aspart (Novolog) 100 Unit/Ml Vial) 0 unit SQ [facility]; Protocol Last Admin: 05/01/21 16:58 Dose: Not Given Documented by: Metoprolol Tartrate (Metoprolol Tartrate 25 Mg Tab) 25 mg PO BID [facility] Last Admin: 05/01/21 08:45 Dose: 25 mg Documented by: Midazolam HCl (Midazolam 1 Mg/Ml 5 Ml Vial) 5 mg IV ONCE PRN PRN Reason: MODERATE PAIN Miscellaneous Information (Rx Info: Iv Contrast Was Given 1 Each Misc) 1 each MISCELLANE DAILY PRN PRN Reason: Per Protocol Stop: 05/01/21 19:57 Nitroglycerin (Nitroglycerin Sl Tabs 0.4 Mg Tab) 0.4 mg SUBLINGUAL Q5M PRN PRN Reason: Chest Pain Ondansetron HCl (Ondansetron 4 Mg/2 Ml Vial) 4 mg IVP Q6HR PRN PRN Reason: Nausea And Vomiting Last Admin: 04/29/21 21:10 Dose: 4 mg Documented by: Ticagrelor (Ticagrelor 90 Mg Tab) 90 mg PO BID [facility] Last Admin: 05/01/21 08:45 Dose: 90 mg Documented by: Zolpidem Tartrate (Zolpidem 5 Mg Tab) 5 mg PO HS PRN PRN Reason: Insomnia Past medical history to include: Diabetes, hypertension, hyperlipidemia Social history: Patient lives with her long-standing partner Dania. No history of smoking and alcohol Family history: Cannot obtain Physical examination: VITAL SIGNS: 98, 73, 16, 117/74, 96% room air GENERAL: Sitting up, comfortable EYES: Pupils equal. Conjunctiva normal. HEENT: External appearance of nose and ears normal, oral cavity grossly normal. NECK: JVD not raised; masses not palpable. HEART: First and second heart sounds are normal; no edema. LUNGS: Respiratory rate normal; clear to auscultation. ABDOMEN: Soft, nontender, liver spleen not palpable, no masses palpable. PSYCH: Sleepy somnolent he would answer some questionsl. INVESTIGATIONS, reviewed in the clinical context: May 01: W BC 8.9 hemoglobin 11 potassium 3.6 creatinine 0.69. ProBNP 843 April 30: WBC 8.8 hemoglobin 11.5 potassium 3.6 creatinine 0.53 2-D echocardiogram: Moderate concentric LVH. EF 50-55%. Wall motion abnormality noted. Labs from [facility]: Sodium 141 potassium 3.4 BUN 17 and creatinine 1.0 white count 7.8 hemoglobin 12.7 platelets 311 Troponin I 0.265 EKG tracing personally reviewed by me-ST elevation in inferior leads and reciprocal changes in anterior leads Assessment and plan: -Acute ST elevation myocardial infarction Emergency angioplasty stent of the RCA. Aspirin, Lipitor, Plavix, Lopressor -Possible post infarct angina. Cardiology to follow. Monitor closely -Diabetes mellitus type 2, on oral hypoglycemic Follow Accu-Cheks -Essential hypertension On Lopressor -Hyperlipidemia On Lipitor -Obesity BMI 31.2 Dietitian Care was discussed with the patient. Current medications to continue. Activity as tolerated. Follow with oncology.
[2021-05-01] MEDS: ATORVASTATIN 80 MG TAB PO SCH (19:41)
[2021-05-01 19:59] LABS: Glucose,Whole Blood 197 mg/dL (75-99)
[2021-05-01 20:04] LABS: Chol/HDL Ratio 2.95; Cholesterol 115 mg/dL (0-200); LDL Cholesterol,Calculated 48.8 mg/dL (0.0-131.0)
[2021-05-02 05:55] LABS: Glucose,Whole Blood 134 mg/dL (75-99)
[2021-05-02] MEDS: INSULIN ASPART (NovoLOG) 100 UNIT/ML VIAL SQ SCH ×2 (06:03→12:10)
[2021-05-02] MEDS ORDERED: LISINOPRIL-HCTZ 20-25 MG 1 EACH TAB PO SCH (09:00)
[2021-05-02 09:07] VITALS: TEMP 98
[2021-05-02] MEDS: METOPROLOL TARTRATE 25 MG TAB PO SCH (09:08)
[2021-05-02] MEDS: ASPIRIN 81 MG PO SCH (09:08)
[2021-05-02] MEDS: TICAGRELOR 90 MG TAB PO SCH (09:08)
[2021-05-02 11:27] LABS: Glucose,Whole Blood 137 mg/dL (75-99)
[2021-05-02 12:10] VITALS: BP 121/74; PULSE 65; RESP 18
--- NOTE | 2021-05-02 12:10 | P.PN ---
Subjective This is a 75-year-old female with a past medical history of hypertension, type 2 diabetes, arthritis. Patient was transferred from [facility] on 04/29/2021 due to ongoing chest pain for more than an hour. EKG revealed ST elevation in inferior leads suggestive ST elevation myocardial infarction involving inferior wall. Patient underwent cardiac catheterization with Dr. Edgar which revealed extremely calcified and tortuous RCA with a thrombotic lesion in the mid in the midportion in the range of 99.9%. Patient underwent PCI to distal RCA, mid RCA, and proximal RCA with Dr. Raza on 04/29/2021. 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 05/01/2021: [facility] Patient with new onset chest pressure in the afternoon. After she went for a walk in the halls. She is pointing to midsternal/epigastric region. She also endorses increased shortness of breath and orthopnea. Non radiating. When she presented for her STEMI she had mostly back pain. She denies nausea, diaphoresis, lightheadedness, dizziness, syncope. EKG repeated with sinus rhythm HR 68, mild ST elevation in inferior leads, no significant findings compared to previous EKG on admission. Chest Xray- no acute findings. Pro BNP 843. 05/02/2021: Patient seen and examined at bedside, no acute distress. She has had no further episodes of chest pain or shortness of breath. She denies any chest pain, shortness of breath, palpitations. Labs reviewed. Blood pressure 121/76, heart rate 70, afebrile, maintaining oxygen saturations 95% on room air. Patient currently maintaining sinus mechanism. Patient currently maintained on aspirin 81 mg daily, atorvastatin 80 mg nightly, metoprolol tartrate 25 mg twice a day, lisinopril-hctz 20-25mg, Brilinta 90mg BID GENERAL: Well-appearing, well-nourished and in no acute distress. NECK: Supple without JVD or thyromegaly. LUNGS: Breath sounds clear to auscultation bilaterally. Respiration equal and unlabored. No wheezes, rales or rhonchi. HEART: Regular rate and rhythm without murmurs, rubs or gallops. S1 and S2 h eard. EXTREMITIES: Normal range of motion, no edema. No clubbing or cyanosis. Peripheral pulses intact 2+ Right Femoral Cath site- clean, dry, intact, no hematoma. NEURO: Patient is alert and oriented x 3. ASSESSMENT: Acute Inferior ST Elevation Myocardial Infarction s/p PCI x 3 to RCA on 021 History of hypertension Type 2 Diabetes History of arthritis PLAN: Continue dual antiplatelet therapy with aspirin and Brilinta. Per case management, patient will have a free month and her Brilina is $75 co-pay patient is agreeable to paying this. Continue, statin, beta la, lisinopril-hctz. From a cardiology perspective, patient can be discharged home. On discharge, patient will follow up with Dr. Edgar as an outpatient. Objective - Vital Signs Vital signs: Vital Signs Temp 97.7 F 05/02/21 03:39 Pulse 73 05/02/21 03:39 Resp 18 05/02/21 03:39 BP 124/73 05/02/21 03:39 Pulse Ox 97 05/02/21 03:39 Intake & Output 05/01/21 05/02/21 05/02/21 18:59 06:59 18:59 Intake Total 630 120 Output Total 2 Balance 628 120 Weight 89.7 kg Intake: Oral 630 120 Output: Urine 2 Other: Voiding Method Bedside Commode Toilet # Voids 1 1 # Bowel Movements 1 ABP, PAP, CO, CI - Last Documented Arterial Blood Pressure 119/61 - Labs CBC & Chem 7: 05/01/21 03:31 05/01/21 03:31 Labs: Abnormal Lab Results - Last 24 Hours (Table) 05/01/21 05/01/21 05/01/21 Range/Units 03:31 11:34 16:42 POC Glucose (mg/dL) 123 H 129 H (75-99) mg/dL HDL Cholesterol 39.0 L (40.0-60.0) mg/dL 05/01/21 05/02/21 Range/Units 19:56 05:52 POC Glucose (mg/dL) 197 H 134 H (75-99) mg/dL HDL Cholesterol (40.0-60.0) mg/dL
--- NOTE | 2021-05-02 19:28 | P.DS ---
Providers Date of admission: 04/29/21 15:31 Expected date of discharge: 05/02/21 Attending physician: Alex Vickers Consults: 04/29/21 19:57 Consult Physician Routine Consulting Provider: [facility] Consult Reason/Comments: Post Interventional patient Do you want consulting provider notified?: Already Contacted Primary care physician: Abdon [facility] Course: Chief Complaint: Chest pain History of presenting complaint: This is a 75-year-old patient, follows with Dr. Pinon. Chronic stable medical conditions include diabetes, hypertension, hyperlipidemia. This afternoon patient developed chest pain about one hour before presentation for details. around the back then went on to the front going to the arms. Possible shortness of breath breaking out in sweat. Patient presented to [facility]. Patient is found to have ST elevation myocardial infarction. Transferred down here. Emergent cardiac catheterization showed occlusion to the RCA. Patient received 3 stents. Patient's currently low the lethargic from sedation and not able to give much of a history herself. 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 April 30: ICU. No chest pain no shortness of breath. Did sit up in a chair. Did tolerate her meals. Feeling better. Son is visiting. May 01: Feeling better. Patient did have some chest pressure.. Oral intake fair. Did walk a bit. Spoke to the patient to let the nurse know and cardiology will be informed about the same. May 02: Doing well. Up and about. According symptoms. Cleared by currently for discharge. Care was discussed with the patient. Questions answered. Consultation: [facility] Past medical history to include: Diabetes, hypertension, hyperlipidemia Social history: Patient lives with her long-standing partner Dania. No history of smoking and alcohol Family history: Cannot obtain Physical examination: VITAL SIGNS: 98, 70, 16, 1 21 x 76, 95% room air GENERAL: Sitting up, comfortable EYES: Pupils equal. Conjunctiva normal. HEENT: External appearance of nose and ears normal, oral cavity grossly normal. NECK: JVD not raised; masses not palpable. HEART: First and second heart sounds are normal; no edema. LUNGS: Respiratory rate normal; clear to auscultation. ABDOMEN: Soft, nontender, liver spleen not palpable, no masses palpable. PSYCH: Sleepy somnolent he would answer some questionsl. INVESTIGATIONS, reviewed in the clinical context: May 01: W BC 8.9 hemoglobin 11 potassium 3.6 creatinine 0.69. ProBNP 843 April 30: WBC 8.8 hemoglobin 11.5 potassium 3.6 creatinine 0.53 2-D echocardiogram: Moderate concentric LVH. EF 50-55%. Wall motion abnormality noted. Labs from [facility]: Sodium 141 potassium 3.4 BUN 17 and creatinine 1.0 white count 7.8 hemoglobin 12.7 platelets 311 Troponin I 0.265 EKG tracing personally reviewed by me-ST elevation in inferior leads and reciprocal changes in anterior leads Assessment and plan: -Acute ST elevation myocardial infarction Emergency angioplasty stent of the RCA. Aspirin, Lipitor, Plavix, Lopressor -Aneurysm of the ascending and transverse aorta 41 mm Follow-up with cardiology as outpatient -Possible post infarct angina.: Improved Cardiology to follow. Monitor closely -Diabetes mellitus type 2, on oral hypoglycemic Follow Accu-Cheks -Essential hypertension On Lopressor -Hyperlipidemia On Lipitor -Obesity BMI 31.2 Dietitian Disposition: Home Plan - Discharge Summary New Discharge Prescriptions: New Ticagrelor [Brilinta] 90 mg PO BID 30 Days #60 tab Aspirin 81 mg PO DAILY chew Atorvastatin [Lipitor] 80 mg PO HS 30 Days #30 tab Metoprolol Tartrate [Lopressor] 25 mg PO BID 30 Days #60 tab Nitroglycerin Sl Tabs [Nitrostat] 0.4 mg SUBLINGUAL Q5M PRN 30 Days #30 tab PRN Reason: Chest Pain Continue Lisinopril-Hctz 20-25 mg [Zestoretic 20-25] 1 tab PO DAILY metFORMIN HCL [Glucophage] 500 mg PO BID Discontinued amLODIPine [Norvasc] 5 mg PO DAILY Atorvastatin [Lipitor] 10 mg PO DAILY Discharge Medication List Lisinopril-Hctz 20-25 mg [Zestoretic 20-25] 1 tab PO DAILY 02/16/17 [History] metFORMIN HCL [Glucophage] 500 mg PO BID 04/29/21 [History] Ticagrelor [Brilinta] 90 mg PO BID 30 Days #60 tab 04/30/21 [Rx] Aspirin 81 mg PO DAILY chew 05/02/21 [Rx] Atorvastatin [Lipitor] 80 mg PO HS 30 Days #30 tab 05/02/21 [Rx] Metoprolol Tartrate [Lopressor] 25 mg PO BID 30 Days #60 tab 07/15/21 [Rx] Nitroglycerin Sl Tabs [Nitrostat] 0.4 mg SUBLINGUAL Q5M PRN 30 Days #30 tab 05/02/21 [Rx] Follow up Appointment(s)/Referral(s): Abdon Pinon MD [Primary Care Provider] - 05/03/21 11:00 am Shorty Edgar MD [STAFF PHYSICIAN] - 1 Week (cardiology will call you with appt.) Patient Instructions/Handouts: Heart Attack (DC), Left Heart Catheterization (DC) Discharge Disposition: HOME SELF-CARE
== END 2021-05-02 15:45 | disposition home or self-care (01) | DRG 247 ==
LOC: 2SICU 15:31 → 3SCARD 05-01 10:18
PROVIDERS: ADMIT Hospitalist; ATTEND Hospitalist
PROC: B41F1ZZ Fluoroscopy of Right Lower Extremity Arteries using Low Osmolar Contrast (ICD-10-PCS; 2021-04-29)
PROC: 027036Z Dilation of Coronary Artery, One Artery with Three Drug-eluting Intraluminal Devices, Percutaneous Approach (ICD-10-PCS; principal; 2021-04-29 17:45)
PROC: 4A023N7 Measurement of Cardiac Sampling and Pressure, Left Heart, Percutaneous Approach (ICD-10-PCS; 2021-04-30)
PROC: B2111ZZ Fluoroscopy of Multiple Coronary Arteries using Low Osmolar Contrast (ICD-10-PCS; 2021-04-30)
DX: I21.19 ST elevation (STEMI) myocardial infarction involving other coronary artery of inferior wall (principal); I25.10 Atherosclerotic heart disease of native coronary artery without angina pectoris; E11.9 Type 2 diabetes mellitus without complications; E78.5 Hyperlipidemia, unspecified; I11.9 Hypertensive heart disease without heart failure; E66.9 Obesity, unspecified; Z79.84 Long term (current) use of oral hypoglycemic drugs; Z79.82 Long term (current) use of aspirin; Z68.31 Body mass index [BMI] 31.0-31.9, adult; Z79.02 Long term (current) use of antithrombotics/antiplatelets; Z79.899 Other long term (current) drug therapy; Z90.49 Acquired absence of other specified parts of digestive tract
CPT/HCPCS: 71045; 80048; 80061; 83880; 85027; 93306; 93454

== ENCOUNTER → 2022-02-17 | Outpatient (CLI) | payer MEDICARE, BC ==
--- NOTE | 2022-02-18 10:17 | MM ---
Reason for exam: screening (asymptomatic). Last mammogram was performed 1 year ago. History: Patient is postmenopausal. Family history of breast cancer in maternal aunt. Physical Findings: A clinical breast exam by your physician is recommended on an annual basis and results should be correlated with mammographic findings. MG 3D Screening Mammo W/Cad Bilateral CC and MLO view(s) were taken. Prior study comparison: February 07, 2021, bilateral MG 3d screening mammo w/cad. November 18, 2019, bilateral MG 3d screening mammo w/cad. There are benign appearing round, vascular, dystrophic calcifications bilaterally. There is chronic nodularity bilaterally, stable. There is no discrete abnormality. ASSESSMENT: Benign, BI-RAD 2 RECOMMENDATION: Routine screening mammogram of both breasts in 1 year.
== END | disposition home or self-care (01) ==
LOC: RADMAMWWP 15:46
PROVIDERS: ATTEND Family Medicine
DX: Z12.31 Encounter for screening mammogram for malignant neoplasm of breast (principal); Z78.0 Asymptomatic menopausal state; Z80.3 Family history of malignant neoplasm of breast
CPT/HCPCS: 77063; 77067

== ENCOUNTER 2022-09-17 06:35 | Observation (INO) | payer MEDICARE, BC ==
[2022-09-17] MEDS ORDERED: NITROGLYCERIN OINT 1 INCH/GM PACKET TOPICAL STA (06:55)
[2022-09-17] MEDS ORDERED: ASPIRIN 81 MG PO STA (06:55)
[2022-09-17 07:24] LABS: Partial Thromboplastin Time 23.8 sec (22.0-30.0); Prothrombin Time 10.2 sec (9.0-12.0)
[2022-09-17 07:25] LABS: ALT 19 U/L (4-34); AST 33 U/L (14-36); African American GFR (CKD) >90 (>60 ml/min/1.73 sqM); Albumin 4.1 g/dL (3.5-5.0); Alkaline Phosphatase 48 U/L (38-126); Anion Gap 9 mmol/L; Blood Urea Nitrogen 23 mg/dL (7-17); Carbon Dioxide 27 mmol/L (22-30); Chloride 102 mmol/L (98-107); Glucose 121 mg/dL (74-99); Magnesium 1.3 mg/dL (1.6-2.3); Non-African American GFR(CKD) 82 (>60 ml/min/1.73 sqM); Sodium 138 mmol/L (137-145); Total Protein 6.6 g/dL (6.3-8.2)
--- NOTE | 2022-09-17 07:25 | ED ---
Back Pain HPI - General Chief Complaint: Back Pain/Injury Stated Complaint: Chest pain Time Seen by Provider: 09/17/22 06:45 Source: patient, RN notes reviewed Mode of arrival: ambulatory Limitations: no limitations - History of Present Illness Initial Comments: This a 68-year-old female presents emergency Department with chief complaint of upper back pain, chest discomfort. Patient states that this is very similar to her pain she had when she had her CO April 2021. Patient states she had 3 stents placed her content production specialist Dr. Raza. Patient states that she has no shortness breath no pleuritic pain. She did take a nitro which seemed to help her pain states the pain returned she took a second nitro. Patient states that she's been taking all her medications as directed. Denies any significant vomiting, nausea, diaphoresis. - Related Data Home Medications Medication Instructions Recorded Confirmed Lisinopril-Hctz 20-25 mg 1 tab PO DAILY 02/16/17 04/29/21 [Zestoretic 20-25] metFORMIN HCL [Glucophage] 500 mg PO BID 04/29/21 04/29/21 Clopidogrel [Plavix] 75 mg PO DAILY 09/17/22 09/17/22 Loratadine [Claritin] 10 mg PO HS 09/17/22 09/17/22 diphenhydrAMINE HCL [Benadryl 25 mg PO DAILY 09/17/22 09/17/22 Allergy] Previous Rx's Medication Instructions Recorded Aspirin 81 mg PO DAILY chew 05/02/21 Atorvastatin [Lipitor] 80 mg PO HS 30 Days #30 tab 05/02/21 Metoprolol Tartrate [Lopressor] 25 mg PO BID 30 Days #60 tab 05/02/21 Allergies Allergy/AdvReac Type Severity Reaction Status Date / Time morphine AdvReac Unknown Verified 09/17/22 08:31 Penicillins AdvReac Unknown Verified 09/17/22 08:31 Childhood tramadol [From Ultram] AdvReac increased Verified 09/17/22 08:31 BP Review of Systems ROS Statement: Those systems with pertinent positive or pertinent negative responses have been documented in the HPI. ROS Other: All systems not noted in ROS Statement are negative. Past Medical History Past Medical History: Hypertension, Myocardial Infarction (CO), Osteoarthritis (OA) Additional Past Medical History / Comment(s): DM TYPE II, PT STATES SHE TAKES METFORMIN AT HOME. History of Any Multi-Drug Resistant Organisms: None Reported Past Surgical History: Appendectomy, Joint Replacement Additional Past Surgical History / Comment(s): Both knees & hips replaced; cataracts; colonoscopy Past Anesthesia/Blood Transfusion Reactions: Postoperative Nausea & Vomiting (PONV) Past Psychological History: No Psychological Hx Reported Smoking Status: Never smoker Past Alcohol Use History: None Reported Past Drug Use History: None Reported - Past Family History Daughter(s) Family Medical History: Cancer General Exam Limitations: no limitations General appearance: alert, in no apparent distress Head exam: Present: atraumatic, normocephalic, normal inspection Eye exam: Present: normal appearance, PERRL, EOMI. Absent: scleral icterus, conjunctival injection, periorbital swelling ENT exam: Present: normal exam, normal oropharynx, mucous membranes moist Neck exam: Present: normal inspection, full ROM. Absent: tenderness, meningismus, lymphadenopathy Respiratory exam: Present: normal lung sounds bilaterally. Absent: respiratory distress, wheezes, rales, rhonchi, stridor Cardiovascular Exam: Present: regular rate, normal rhythm, normal heart sounds. Absent: systolic murmur, diastolic murmur, rubs, gallop, clicks GI/Abdominal exam: Present: soft, normal bowel sounds. Absent: distended, tenderness, guarding, rebound, rigid Course Vital Signs 09/17/22 06:38 Temperature 98 F Pulse Rate 88 Respiratory 18 Rate Blood Pressure 130/89 O2 Sat by Pulse 97 Oximetry Medical Decision Making - Medical Decision Making 76-year-old presented to [facility] for chest pain. Patient has initial back pain alleviated with nitro. Patient has had prior CO with stent placement similar pain. Initial troponin is negative. Patient is concerning ACS symptoms will be admitted to the hospital for repeat troponin, echocardiogram, cardiology evaluation. I did discuss case with Dr. Vickers - Lab Data Result diagrams: 09/17/22 07:06 09/17/22 07:06 Lab Results 09/17/22 09/17/22 09/17/22 Range/Units 07:06 07:06 07:06 WBC 6.6 (3.8-10.6) k/uL RBC 3.87 (3.80-5.40) m/uL Hgb 13.1 (11.4-16.0) gm/dL Hct 37.6 (34.0-46.0) % MCV 97.1 (80.0-100.0) fL MCH 34.0 (25.0-35.0) pg MCHC 35.0 (31.0-37.0) g/dL RDW 12.4 (11.5-15.5) % Plt Count 292 (150-450) k/uL MPV 7.7 Neutrophils % (Manual) 54 % Lymphocytes % (Manual) 35 % Monocytes % (Manual) 9 % Eosinophils % (Manual) 2 % Neutrophils # (Manual) 3.56 (1.3-7.7) k/uL Lymphocytes # (Manual) 2.31 (1.0-4.8) k/uL Monocytes # (Manual) 0.59 (0-1.0) k/uL Eosinophils # (Manual) 0.13 (0-0.7) k/uL Nucleated RBCs 0 (0-0) /100 WBC Manual Slide Review Performed RBC Morphology Normal PT 10.2 (9.0-12.0) sec INR 1.0 (<1.2) APTT 23.8 (22.0-30.0) sec Sodium 138 (137-145) mmol/L Potassium 4.0 (3.5-5.1) mmol/L Chloride 102 (98-107) mmol/L Carbon Dioxide 27 (22-30) mmol/L Anion Gap 9 mmol/L BUN 23 H (7-17) mg/dL Creatinine 0.71 (0.52-1.04) mg/dL Est GFR (CKD-EPI)AfAm >90 (>60 ml/min/1.73 sqM) Est GFR (CKD-EPI)NonAf 82 (>60 ml/min/1.73 sqM) Glucose 121 H (74-99) mg/dL Calcium 9.0 (8.4-10.2) mg/dL Magnesium 1.3 L (1.6-2.3) mg/dL Total Bilirubin 1.0 (0.2-1.3) mg/dL AST 33 (14-36) U/L ALT 19 (4-34) U/L Alkaline Phosphatase 48 (38-126) U/L Troponin I (0.000-0.034) ng/mL NT-Pro-B Natriuret Pep pg/mL Total Protein 6.6 (6.3-8.2) g/dL Albumin 4.1 (3.5-5.0) g/dL 09/17/22 09/17/22 Range/Units 07:06 07:06 WBC (3.8-10.6) k/uL RBC (3.80-5.40) m/uL Hgb (11.4-16.0) gm/dL Hct (34.0-46.0) % MCV (80.0-100.0) fL MCH (25.0-35.0) pg MCHC (31.0-37.0) g/dL RDW (11.5-15.5) % Plt Count (150-450) k/uL MPV Neutrophils % (Manual) % Lymphocytes % (Manual) % Monocytes % (Manual) % Eosinophils % (Manual) % Neutrophils # (Manual) (1.3-7.7) k/uL Lymphocytes # (Manual) (1.0-4.8) k/uL Monocytes # (Manual) (0-1.0) k/uL Eosinophils # (Manual) (0-0.7) k/uL Nucleated RBCs (0-0) /100 WBC Manual Slide Review RBC Morphology PT (9.0-12.0) sec INR (<1.2) APTT (22.0-30.0) sec Sodium (137-145) mmol/L Potassium (3.5-5.1) mmol/L Chloride (98-107) mmol/L Carbon Dioxide (22-30) mmol/L Anion Gap mmol/L BUN (7-17) mg/dL Creatinine (0.52-1.04) mg/dL Est GFR (CKD-EPI)AfAm (>60 ml/min/1.73 sqM) Est GFR (CKD-EPI)NonAf (>60 ml/min/1.73 sqM) Glucose (74-99) mg/dL Calcium (8.4-10.2) mg/dL Magnesium (1.6-2.3) mg/dL Total Bilirubin (0.2-1.3) mg/dL AST (14-36) U/L ALT (4-34) U/L Alkaline Phosphatase (38-126) U/L Troponin I <0.012 (0.000-0.034) ng/mL NT-Pro-B Natriuret Pep 153 pg/mL Total Protein (6.3-8.2) g/dL Albumin (3.5-5.0) g/dL - EKG Data -: EKG Interpreted by Me EKG Comments: EKG 6:49 sinus rhythm rate of 74 CA 193 QRS 90 QT status QTC/435 inverted T wave, Q-wave in lead 3 similar findings 04/29/2021 compared to prior EKG Critical Care Time Critical Care Time: Yes Total Critical Care Time: 35 Disposition Clinical Impression: Chest pain Disposition: ADMITTED IP TO THIS HOSP Referrals: Jennie Allen, NPC [Family Provider] - 1-2 days Time of Disposition: 08:47
--- NOTE | 2022-09-17 07:30 | XR ---
EXAMINATION TYPE: XR chest 2V DATE OF EXAM: 09/17/2022 COMPARISON: Chest x-ray May 01, 2021 HISTORY: Chest pain. TECHNIQUE: Frontal and lateral views of the chest are obtained. FINDINGS: Diminished inspiration. There is no suspicious new focal air space opacity, pleural effusio n, or pneumothorax seen. Mild cardiomegaly with atherosclerotic and ectatic thoracic aorta. Multileve l spurring in the spine. IMPRESSION: Mild cardiomegaly without acute pulmonary process.
[2022-09-17 07:31] LABS: HCT 37.6 % (34.0-46.0); HGB 13.1 gm/dL (11.4-16.0); MCV 97.1 fL (80.0-100.0); Mean Platelet Volume 7.7; Platelet Count 292 k/uL (150-450); RBC 3.87 m/uL (3.80-5.40); RDW 12.4 % (11.5-15.5); WBC 6.6 k/uL (3.8-10.6)
[2022-09-17 08:17] LABS: Eosinophils # (M) 0.13 k/uL (0-0.7); Lymphocytes # (M) 2.31 k/uL (1.0-4.8); Monocytes # (M) 0.59 k/uL (0-1.0); Neutrophils # (M) 3.56 k/uL (1.3-7.7); Neutrophils % (M) 54 %; Nucleated Red Blood Cells 0 /100 WBC (0-0); Total Cells Counted 100
[2022-09-17 08:18] LABS: RBC Morphology Normal
[2022-09-17] MEDS ORDERED: MAGNESIUM OXIDE 400 MG TAB PO STA (08:27)
[2022-09-17] MEDS ORDERED: NITROGLYCERIN SL TABS 0.4 MG TAB SUBLINGUAL PRN (08:48)
[2022-09-17] MEDS ORDERED: HEPARIN SODIUM 1,000 UN/ML (10ML VL) IV ONE (08:48)
[2022-09-17] MEDS ORDERED: HEPARIN SODIUM 1,000 UN/ML (10ML VL) IV PRN (08:48)
[2022-09-17] MEDS ORDERED: metFORMIN 500 MG TAB PO SCH (09:00)
[2022-09-17] MEDS ORDERED: HEPARIN SOD,PORK IN 0.45% NACL 25,000 UNIT in 0.45% NACL 1 250ML.BAG IV SCH (09:00)
[2022-09-17] MEDS: CLOPIDOGREL 75 MG TAB PO SCH (10:09)
[2022-09-17] MEDS: diphenhydrAMINE 25 MG CAP PO SCH (10:09)
[2022-09-17] MEDS: LISINOPRIL-HCTZ 20-25 MG 1 EACH TAB PO SCH (10:09)
[2022-09-17] MEDS: METOPROLOL TARTRATE 25 MG TAB PO SCH ×2 (10:10→21:49)
--- NOTE | 2022-09-17 11:00 | P.CRDCN ---
History of Present Illness History of present illness: HISTORY OF PRESENTING ILLNESS This is a pleasant 76-year-old female past medical history significant for coronary artery disease status post PCI distal RCA, mid RCA, proximal RCA in 04/2021 in the setting of STEMI, type 2 diabetes, hypertension, dyslipidemia. She follows in the office with Dr. Raza We have been asked to see in consultation for chest pain. Patient presents to the emergency department with complaints of mid back pain. She states it began this morning at 5am. She states she woke up, felt well, went to the bathroom, and about 15-20 minutes later had increased pressure and sharp pain in her mid/upper back area. She states this is very similar to her prior [place] in 04/2021 and presented to the ER for further evaluation. The back pain is nonexertional, nonradiating. She does not some tenderness to palpation in the area. She denies any associated factors. She denies any specific alleviating factors. Continues to have some pain with palpation on exam. She denies any chest pain, shortness of breath, nausea, vomiting, diaphoresis. She states she is compliant with her medications. She denies any tobacco use. DIAGNOSTICS * EKG reveals sinus rhythm, heart rate 74, T wave inversion in lead III, no acute ischemia noted. * Last Cardiac Catheterization 04/2021- mild distal left main disease with 30% stenosis, LAD with mild disease in the proximal and midportion, left circumflex with mild disease, RCA was heavily calcified and tortuous, subtotal occlusion of the mid RCA, there is TIMI3 flow into the distal RCA which also shows diffuse disease. Patient underwent PCI to the RCA x [address] Raza. * Echocardiogram 02/24/2022 in the office revealed EF 55%, small hypokinetic area inferior wall at the base, mild to moderate mitral regurgitation, trace to mild tricuspid regurgitation * Telemetry tracings indicate sinus rhythm * Chest xray no acute cardiopulmonary process * Laboratory reviewed, troponin negative 1, CBC unremarkable, sodium 138, potassium 4.0, BUN 23, serum creatinine 0.7, magnesium 1.3, BNP 153 * Current home medications include metformin, Benadryl, metoprolol titrate 25 mg twice a day, lisinoprilhydrochlorothiazide 2025 milligrams daily, Plavix 75 mg daily, atorvastatin 80 mg nightly, aspirin 80 mg daily REVIEW OF SYSTEMS At the time of my exam: CONSTITUTIONAL: Denies fever or chills. CARDIOVASCULAR: Denies chest pain, shortness of breath, orthopnea, PND or palpitations. RESPIRATORY: Denies cough. GASTROINTESTINAL: Denies abdominal pain, diarrhea, constipation, nausea or vomiting. MUSCULOSKELETAL: Denies myalgias. NEUROLOGIC: Denies numbness, tingling, headache or weakness. ENDOCRINE: Denies fatigue, weight change, polydipsia or polyurina. GENITOURINARY: Denies burning, hematuria or urgency with micturation. HEMATOLOGIC: Denies history of anemia or bleeding. PHYSICAL EXAMINATION Blood pressure 130/89, heart rate 88, afebrile, saturations 97% on room air CONSTITUTIONAL: No apparent distress. HEENT: Head is normocephalic. Pupils are equal, round. Sclerae anicteric. Mucous membranes of the mouth are moist. No JVD. No carotid bruit. CHEST EXAMINATION: Lungs are clear to auscultation. No chest wall tenderness is noted on palpation or with deep breathing. HEART EXAMINATION: Regular rate and rhythm. S1, S2 heard. No murmurs, gallops or rub. ABDOMEN: Soft, nontender. Positive bowel sounds. EXTREMITIES: 2+ peripheral pulses, no lower extremity edema and no calf tenderness. SKIN: warm, dry NEUROLOGIC EXAMINATION: Patient is awake, alert and oriented x3. ASSESSMENT Back pain that patient describes similar to her [place] in 04/2021 Coronary artery disease status post PCI distal RCA, mid RCA, proximal RCA in 04/2021 in the setting of STEMI Type 2 diabetes Hypertension Dyslipidemia PLAN Initial troponin negative, EKG with no evidence of acute ischemia Trend troponin Repeat EKG Continue IV heparin at this time If troponins are negative, will stop IV heparin and Perform Stress Echo test to assess for stress induced cardiac ischemia tomorrow. If abnormal will consider coronary angiography. NPO after midnight Hold metformin at this time Continue home cardiac medications Further recommendations based on clinical course Thank you kindly for this consultation. Nurse practitioner note has been reviewed by physician. Signing provider agrees with the documented findings, assessment, and plan of care. Past Medical History Past Medical History: Hypertension, Myocardial Infarction ([place]), Osteoarthritis (OA) Additional Past Medical History / Comment(s): DM TYPE II, PT STATES SHE TAKES METFORMIN AT HOME. History of Any Multi-Drug Resistant Organisms: None Reported Past Surgical History: Appendectomy, Joint Replacement Additional Past Surgical History / Comment(s): Both knees & hips replaced; cataracts; colonoscopy Past Anesthesia/Blood Transfusion Reactions: Postoperative Nausea & Vomiting (PONV) Past Psychological History: No Psychological Hx Reported Smoking Status: Never smoker Past Alcohol Use History: None Reported Past Drug Use History: None Reported - Past Family History Daughter(s) Family Medical History: Cancer Medications and Allergies Home Medications Medication Instructions Recorded Confirmed Type Lisinopril-Hctz 20-25 mg 1 tab PO DAILY 02/16/17 09/17/22 History [Zestoretic 20-25] metFORMIN HCL [Glucophage] 500 mg PO BID 04/29/21 09/17/22 History Aspirin 81 mg PO DAILY chew 05/02/21 09/17/22 Rx Atorvastatin [Lipitor] 80 mg PO HS 30 Days #30 tab 05/02/21 09/17/22 Rx Metoprolol Tartrate [Lopressor] 25 mg PO BID 30 Days #60 tab 05/02/21 09/17/22 Rx Clopidogrel [Plavix] 75 mg PO DAILY 09/17/22 09/17/22 History Loratadine [Claritin] 10 mg PO HS 09/17/22 09/17/22 History diphenhydrAMINE HCL [Benadryl 25 mg PO DAILY 09/17/22 09/17/22 History Allergy] Allergies Allergy/AdvReac Type Severity Reaction Status Date / Time morphine AdvReac Unknown Verified 09/17/22 08:31 Penicillins AdvReac Unknown Verified 09/17/22 08:31 Childhood tramadol [From Ultram] AdvReac increased Verified 09/17/22 08:31 BP Physical Exam Vitals: Vital Signs Temp Pulse Resp BP Pulse Ox 09/17/22 09:00 95 09/17/22 06:38 98 F 88 18 130/89 97 Intake and Output 09/16/22 09/17/22 09/17/22 22:59 06:59 14:59 Other: Weight 86.183 kg Results 09/17/22 07:06 09/17/22 07:06 Cardiac Enzymes 09/17/22 09/17/22 Range/Units 07:06 07:06 AST 33 (14-36) U/L Troponin I <0.012 (0.000-0.034) ng/mL Coagulation 09/17/22 Range/Units 07:06 PT 10.2 (9.0-12.0) sec APTT 23.8 (22.0-30.0) sec CBC 09/17/22 Range/Units 07:06 WBC 6.6 (3.8-10.6) k/uL RBC 3.87 (3.80-5.40) m/uL Hgb 13.1 (11.4-16.0) gm/dL Hct 37.6 (34.0-46.0) % Plt Count 292 (150-450) k/uL Comprehensive Metabolic Panel 09/17/22 Range/Units 07:06 Sodium 138 (137-145) mmol/L Potassium 4.0 (3.5-5.1) mmol/L Chloride 102 (98-107) mmol/L Carbon Dioxide 27 (22-30) mmol/L BUN 23 H (7-17) mg/dL Creatinine 0.71 (0.52-1.04) mg/dL Glucose 121 H (74-99) mg/dL Calcium 9.0 (8.4-10.2) mg/dL AST 33 (14-36) U/L ALT 19 (4-34) U/L Alkaline Phosphatase 48 (38-126) U/L Total Protein 6.6 (6.3-8.2) g/dL Albumin 4.1 (3.5-5.0) g/dL Current Medications Generic Name Dose Route Start Last Admin Trade Name Freq PRN Reason Stop Dose Admin Aspirin 325 mg 09/18/22 09:00 Aspirin 325 Mg Tab PO DAILY [facility] Atorvastatin Calcium 80 mg 09/17/22 21:00 Atorvastatin 80 Mg Tab PO HS [facility] Clopidogrel Bisulfate 75 mg 09/17/22 09:00 Clopidogrel 75 Mg Tab PO DAILY [facility] Diphenhydramine HCl 25 mg 09/17/22 09:00 Diphenhydramine 25 Mg Cap PO DAILY [facility] Lisinopril/HCTZ 1 each 09/17/22 09:00 Lisinopril-Hctz 20-25 Mg 1 Each Tab PO DAILY [facility] Heparin Sodium (Porcine) 0 unit 09/17/22 08:48 Heparin Sodium 1,000 Un/Ml (10ml Vl) IV Q6HR PRN Chest Pain Protocol Heparin Sodium/Sodium Chloride 250 mls @ 9.997 mls/hr 09/17/22 09:00 25,000 unit/ Sodium Chloride IV .Q24H [facility] Protocol 11.6 UNITS/KG/HR Loratadine 10 mg 09/17/22 21:00 Loratadine 10 Mg Tab PO HS [facility] Metformin HCl 500 mg 09/17/22 09:00 Metformin 500 Mg Tab PO BID [facility] Metoprolol Tartrate 25 mg 09/17/22 09:00 Metoprolol Tartrate 25 Mg Tab PO BID [facility] Nitroglycerin 0.4 mg 09/17/22 08:48 Nitroglycerin Sl Tabs 0.4 Mg Tab SUBLINGUAL Q5M PRN Chest Pain Intake and Output 09/16/22 09/17/22 09/17/22 22:59 06:59 14:59 Other: Weight 86.183 kg 09/17/22 07:06 09/17/22 07:06
[2022-09-17] MEDS: ACETAMINOPHEN TAB 500 MG TAB PO PRN ×2 (11:04→22:57)
--- NOTE | 2022-09-17 18:22 | P.HPIM ---
History of Present Illness H&P Date: 09/17/22 Chief Complaint: Pain between shoulder blades : This is a 76-year-old patient, follows with Dr. Pinon. Chronic stable medical conditions include diabetes, hypertension, hyperlipidemia. April 2021: 3 stents to RCA patient follows with assistant reading teacher Dr. Reyes. Patient yesterday developed pain discomfort. The shoulder blades last her for about 10 minutes. Took nitroglycerin. Pain came back again. Last her for about 45 minutes. No dizziness or lightheadedness no perspiration or shortness of breath. This was similar to presentation last year before she called the CT. Has admitted for the same. Otherwise patient got a good exercise tolerance. Review of systems: GEN.: None EYES: None HEENT: None NECK: None RESPIRATORY: None CARDIOVASCULAR: As above GASTROINTESTINAL: None GENITOURINARY: None MUSCULOSKELETAL: None LYMPHATICS: None HEMATOLOGICAL: None PSYCHIATRY: None NEUROLOGICAL: None Past medical history to include: Diabetes, hypertension, hyperlipidemia, CAD with 3stent to RCA in 2020 Social history: lives with her partner Dania. No history of smoking and alcohol Family history: Cannot obtain History of presenting complaint: This is a 75-year-old patient, follows with Dr. Pinon. Chronic stable medical conditions include diabetes, hypertension, hyperlipidemia. This afternoon patient developed chest pain about one hour before presentation for details. around the back then went on to the front going to the arms. Possible shortness of breath breaking out in sweat. Patient presented to [facility]. Patient is found to have ST elevation myocardial infarction. Transferred down here. Emergent cardiac catheterization showed occlusion to the RCA. Patient received 3 stents. Patient's currently low the lethargic from sed ation and not able to give much of a history herself. 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 April 30: ICU. No chest pain no shortness of breath. Did sit up in a chair. Did tolerate her meals. Feeling better. Son is visiting. May 01: Feeling better. Patient did have some chest pressure.. Oral intake fair. Did walk a bit. Spoke to the patient to let the nurse know and cardiology will be informed about the same. May 02: Doing well. Up and about. According symptoms. Cleared by currently for discharge. Care was discussed with the patient. Questions answered. Consultation: Cardiology associates Past medical history to include: Diabetes, hypertension, hyperlipidemia Social history: Patient lives with her long-standing partner Dania. No history of smoking and alcohol Family history: Cancer Physical examination: VITAL SIGNS: 98, 88, 18, 1:30/89, 97% room air GENERAL: BMI 29.8, and is planning but awake, comfortable EYES: Pupils equal. Conjunctiva normal. HEENT: External appearance of nose and ears normal, oral cavity grossly normal. NECK: JVD not raised; masses not palpable. HEART: First and second heart sounds are normal; no edema. LUNGS: Respiratory rate normal; clear to auscultation. ABDOMEN: Soft, nontender, liver spleen not palpable, no masses palpable. PSYCH: AO 3, mood and affect normal NEUROLOGICAL: Cranial nerves grossly intact; no facial asymmetry, power and sensation grossly intact. LYMPHATICS: No lymph nodes palpable in the axilla and neck INVESTIGATIONS, reviewed in the clinical context: WBC 6.6 hemoglobin 13.1 and platelets 292 potassium 4 BUN 23 creatinine 0.71 Troponin I 3 negative EKG tracing personally reviewed by me-normal sinus rhythm. Rate 74. Chest x-ray film personally reviewed by me-some cardiomegaly, lungs clear Assessment and plan: -Unstable angina. The patient with known CAD Patient IV heparin initially. 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 Follow Accu-Cheks. -Essential hypertension On Lopressor, Zestoretic -Hyperlipidemia On Lipitor ER placed on IV heparin. Telemetry. Cardiology consulted. Resume home medicat ions. Hold Glucophage. Accu-Cheks. Care was discussed with the patient. Questions answered. Stress echocardiogram being ordered. Past Medical History Past Medical History: Hypertension, Myocardial Infarction ([place]), Osteoarthritis (OA) Additional Past Medical History / Comment(s): DM TYPE II, PT STATES SHE TAKES METFORMIN AT HOME. History of Any Multi-Drug Resistant Organisms: None Reported Past Surgical History: Appendectomy, Joint Replacement Additional Past Surgical History / Comment(s): Both knees & hips replaced; cataracts; colonoscopy Past Anesthesia/Blood Transfusion Reactions: Postoperative Nausea & Vomiting (PONV) Past Psychological History: No Psychological Hx Reported Smoking Status: Never smoker Past Alcohol Use History: None Reported Past Drug Use History: None Reported - Past Family History Daughter(s) Family Medical History: Cancer Medications and Allergies Home Medications Medication Instructions Recorded Confirmed Type Lisinopril-Hctz 20-25 mg 1 tab PO DAILY 02/16/17 09/17/22 History [Zestoretic 20-25] metFORMIN HCL [Glucophage] 500 mg PO BID 04/29/21 09/17/22 History Aspirin 81 mg PO DAILY chew 05/02/21 09/17/22 Rx Atorvastatin [Lipitor] 80 mg PO HS 30 Days #30 tab 05/02/21 09/17/22 Rx Metoprolol Tartrate [Lopressor] 25 mg PO BID 30 Days #60 tab 05/02/21 09/17/22 Rx Clopidogrel [Plavix] 75 mg PO DAILY 09/17/22 09/17/22 History Loratadine [Claritin] 10 mg PO HS 09/17/22 09/17/22 History diphenhydrAMINE HCL [Benadryl 25 mg PO DAILY 09/17/22 09/17/22 History Allergy] Allergies Allergy/AdvReac Type Severity Reaction Status Date / Time morphine AdvReac Unknown Verified 09/17/22 08:31 Penicillins AdvReac Unknown Verified 09/17/22 08:31 Childhood tramadol [From Ultram] AdvReac increased Verified 09/17/22 08:31 BP Physical Exam Vitals: Vital Signs Temp Pulse Resp BP Pulse Ox 09/17/22 09:00 95 09/17/22 06:38 98 F 88 18 130/89 97 Intake and Output 09/16/22 09/17/22 09/17/22 22:59 06:59 14:59 Other: Weight 86.183 kg Results CBC & Chem 7: 09/17/22 07:06 09/17/22 07:06 Labs: Abnormal Lab Results - Last 24 Hours (Table) 09/17/22 Range/Units 07:06 BUN 23 H (7-17) mg/dL Glucose 121 H (74-99) mg/dL Magnesium 1.3 L (1.6-2.3) mg/dL
[2022-09-17] MEDS ORDERED: LORATADINE 10 MG TAB PO SCH (21:00)
[2022-09-17] MEDS ORDERED: ATORVASTATIN 80 MG TAB PO SCH (21:00)
[2022-09-18] MEDS ORDERED: SODIUM CHLORIDE 0.9% 1,000 ML IV SCH
[2022-09-18 04:43] LABS: African American GFR (CKD) >90 (>60 ml/min/1.73 sqM); Anion Gap 8 mmol/L; Blood Urea Nitrogen 20 mg/dL (7-17); Calcium 9.2 mg/dL (8.4-10.2); Carbon Dioxide 26 mmol/L (22-30); Chloride 103 mmol/L (98-107); Glucose 101 mg/dL (74-99); Non-African American GFR(CKD) 86 (>60 ml/min/1.73 sqM); Potassium 3.8 mmol/L (3.5-5.1); Sodium 137 mmol/L (137-145)
[2022-09-18] MEDS: diphenhydrAMINE 25 MG CAP PO SCH ×2 (08:37→10:20)
[2022-09-18] MEDS: LISINOPRIL-HCTZ 20-25 MG 1 EACH TAB PO SCH (08:37)
[2022-09-18] MEDS: CLOPIDOGREL 75 MG TAB PO SCH (08:37)
[2022-09-18 08:56] VITALS: BP 153/82; PULSE 61; RESP 18; TEMP 98
[2022-09-18] MEDS ORDERED: ASPIRIN 325 MG TAB PO SCH (09:00)
[2022-09-18] MEDS ORDERED: ASPIRIN 81 MG PO SCH (09:00)
[2022-09-18 09:32] LABS: Platelet Count 274 X 10*3/uL (140-440)
[2022-09-18 09:51] LABS: Chol/HDL Ratio 2.39 Ratio; LDL Cholesterol,Calculated 39.5 mg/dL (0.0-131.0)
--- NOTE | 2022-09-18 10:02 | P.PN ---
Subjective This is a pleasant 76-year-old female past medical history significant for coronary artery disease status post PCI distal RCA, mid RCA, proximal RCA in 04/2021 in the setting of STEMI, type 2 diabetes, hypertension, dyslipidemia. She follows in the office with Dr. Raza We have been asked to see in consultation for chest pain. Patient presents to the emergency department with complaints of mid back pain. She states it began this morning at 5am. She states she woke up, felt well, went to the bathroom, and about 15-20 minutes later had increased pressure and sharp pain in her mid/upper back area. She states this is very similar to her prior [place] in 04/2021 and presented to the ER for further evaluation. The back pain is nonexertional, nonradiating. She does not some tenderness to palpation in the area. She denies any associated factors. She denies any specific alleviating factors. Continues to have some pain with palpation on exam. She denies any chest pain, shortness of breath, nausea, vomiting, diaphoresis. She states she is compliant with her medications. She denies any tobacco use. DIAGNOSTICS: * Last Cardiac Catheterization 04/2021- mild distal left main disease with 30% stenosis, LAD with mild disease in the proximal and midportion, left circumflex with mild disease, RCA was heavily calcified and tortuous, subtotal occlusion of the mid RCA, there is TIMI3 flow into the distal RCA which also shows diffuse disease. Patient underwent PCI to the RCA x [address] Raza. * Echocardiogram 02/24/2022 in the office revealed EF 55%, small hypokinetic area inferior wall at the base, mild to moderate mitral regurgitation, trace to mild tricuspid regurgitation 09/18/2022 Patient seen and examined at bedside, no acute distress. She denies any further chest pain. Denies any shortness of breath. Plan for a stress echocardiogram test today. Blood pressure 153/82, heart rate 61, afebrile, saturations 96% on room air. Repeat EKG this morning with no significant changes. Troponins were negative 3 PHYSICAL EXAMINATION Vitals reviewed CONSTITUTIONAL: No apparent distress. HEENT: Head is normocephalic. Neck Supple. No JVD. No carotid bruit. CHEST EXAMINATION: Lungs are clear to auscultation. No chest wall tenderness is noted on palpation or with deep breathing. HEART EXAMINATION: Regular rate and rhythm. S1, S2 heard. No murmurs, gallops or rub. ABDOMEN: Soft, nontender. Positive bowel sounds. EXTREMITIES: 2+ peripheral pulses, no lower extremity edema and no calf tenderness. SKIN: warm, dry NEUROLOGIC EXAMINATION: Patient is awake, alert and oriented x3. ASSESSMENT Back pain that patient describes similar to her [place] in 04/2021 Coronary artery disease status post PCI distal RCA, mid RCA, proximal RCA in 04/2021 in the setting of STEMI Type 2 diabetes Hypertension Dyslipidemia PLAN Acute coronary syndrome has been ruled out with negative troponins and no evidence of ischemic changes on EKG Perform Stress Echo test today to assess for stress induced cardiac ischemia tomorrow. If abnormal will consider coronary angiography. Continue home cardiac medications, hold Beta la this morning for stress test If stress test negative for stress induced ischemia, no further inpatient workup from a cardiology perspective and patient to follow up outpatient with Dr. Raza. Nurse practitioner note has been reviewed by physician. Signing provider agrees with the documented findings, assessment, and plan of care. Objective - Vital Signs Vital signs: Vital Signs Temp 98 F 09/18/22 07:00 Pulse 61 09/18/22 07:00 Resp 18 09/18/22 07:00 BP 153/82 09/18/22 07:00 Pulse Ox 96 09/18/22 07:00 FiO2 Intake & Output 09/17/22 09/18/22 09/18/22 18:59 06:59 18:59 Output Total 1600 Balance -1600 Weight 86.183 kg Output: Urine 1600 Other: # Voids 3 - Labs CBC & Chem 7: 09/18/22 04:10 09/18/22 04:10 Labs: Abnormal Lab Results - Last 24 Hours (Table) 09/17/22 09/18/22 Range/Units 15:22 04:10 APTT 46.5 H (22.0-30.0) sec BUN 20 H (7-17) mg/dL Glucose 101 H (74-99) mg/dL
--- NOTE | 2022-09-18 10:53 | CA ---
Transthoracic Echo Report Name: Krissy Short Age: 76 Gender: F : 1945 Exam Date: 09/18/2022 10:32 Exam Location: [place] [facility] Ht (in): 67 Wt (lb): 190 Ordering Physician: Krzysztof Chen Attending/Referring Phys: [id number], April [facility] Specialist Keira Clemons RDCS Procedure CPT: Indications: Chest Pain Cardiac Hx: Technical Quality: Contrast 1: Total Dose (mL): Contrast 2: Total Dose (mL): MEASUREMENTS (Male / Female) Normal Values 2D ECHO LV Diastolic Diameter PLAX 3.7 cm 4.2 - 5.9 / 3.9 - 5.3 cm LV Systolic Diameter PLAX 3.2 cm IVS Diastolic Thickness 1.1 cm 0.6 - 1.0 / 0.6 - 0.9 cm LVPW Diastolic Thickness 1.5 cm 0.6 - 1.0 / 0.6 - 0.9 cm LV Relative Wall Thickness 0.7 RV Internal Dim ED PLAX 3.2 cm LA Systolic Diameter LX 3.6 cm 3.0 - 4.0 / 2.7 - 3.8 cm LA Volume 60.7 cm??? 18 - 58 / 22 - 52 cm??? M-MODE Aortic Root Diameter MM 3.2 cm LA Systolic Diameter MM 4.1 cm LA Ao Ratio MM 1.3 MV E Point Septal Separation 0.2 cm AV Cusp Separation MM 2.1 cm DOPPLER MV Area PHT 2.9 cm??? Mitral E Point Velocity 47.4 cm/s Mitral A Point Velocity 95.9 cm/s Mitral E to A Ratio 0.5 MV Deceleration Time 258.1 ms MV E' Velocity 4.7 cm/s Mitral E to MV E' Ratio 10.0 TR Peak Velocity 202.8 cm/s TR Peak Gradient 16.5 mmHg Right Ventricular Systolic Press 21.5 mmHg FINDINGS Left Ventricle Mildly increased septal wall thickness. Left ventricular ejection fraction is estimated at 55%. Left ventricular cavity size normal. Right Ventricle Normal right ventricular size and function. Right Atrium Normal right atrial size. Left Atrium Mildly increased left atrial volume. Mitral Valve Structurally normal mitral valve. Mild mitral regurgitation. Moderate mitral annular calcification. Aortic Valve Trileaflet aortic valve. Tricuspid Valve Structurally normal tricuspid valve. Mild tricuspid regurgitation. Pulmonic Valve Structurally normal pulmonic valve. Pericardium Normal pericardium. Aorta Normal size aortic root and proximal ascending aorta. CONCLUSIONS Normal left ventricle size and systolic function with mild concentric LVH. There is a questionable inferobasal hypokinesia but ejection fraction is in the normal range. Mild mitral and tricuspid insufficiency. No pericardial effusion Previewed by: Dr. Nayely Phoenix MD (Electronically Signed) Final Date: 18 September 2022 10:52
--- NOTE | 2022-09-18 10:59 | CA ---
Stress Echo Report Krissy Short Age: 76 Gender: F : 1945 Exam Date: 09/18/2022 10:14 Exam Location: [place] [facility] Ht (in): 67 Wt (lb): 180 Ordering Physician: Keshia Paul Referring Physician: [id number],, Assembler [employer] Form: Keira Clemons RDCS Technologist Procedure CPT: Indication: Chest Pain ICD-9 Codes: Rhythm: Patient History: Cardiac Medications: Medications in past 24 hours: Contrast: N/A Stress Results Protocol: Blake Total dose(mL): Exercise Duration (min:sec): Max ST Depression (mm): Angina Score: Khoury Score: METS: 5.4 Resting HR: 82 Resting BP: 138 / 79 Peak HR: 122 Peak BP: 165 / 71 Max Predicted HR: 142 86 % Max Predicted HR Target HR: 121 Double Product: [id number] Stress Summary: BP Response: Reason for Termination: MAX EXERTION/TARGET HR Cardiac Symptoms: NO CARDIAC SYMPTOMS ECG Analysis Resting ECG: Stress ECG: Arrhythmia: Echo Analysis Resting Echo: Peak Echo Analysis: MEASUREMENTS (Male/Female) Normal Values CONCLUSIONS Baseline EKG revealed a normal sinus rhythm without significant ST-T changes. Patient walked on a standard Blake protocol for a total duration of 3 minutes and 42 seconds. Her maximum heart rate was 122 bpm which is 85% of predicted maximal. She did not have any angina or arrhythmia. Peak blood pressure was 165/71. EKG did not reveal any ST segment changes to indicate ischemia. Isolated PVCs were noted. Baseline echo images revealed normal wall motion wall thickening of all segments. In the inferobasal portion there was a question of hypokinesia on the resting images. At peak exercise there was good augmentation of the front wall motion wall thickening of all segments suggesting that there is no evidence of any stress-induced ischemia on this study. Limited exercise capacity with a negative stress test by EKG criteria No evidence of any ischemia on the basis of stress echocardiogram Dr. Nayely Phoenix MD (Electronically Signed) Final Date: 18 September 2022 10:58
--- NOTE | 2022-09-18 15:36 | P.PN ---
Progress Note - Text Progress Note Date: 09/18/22 Chief Complaint: Pain between shoulder blades : This is a 76-year-old patient, follows with Dr. Pinon. Chronic stable medical conditions include diabetes, hypertension, hyperlipidemia. April 2021: 3 stents to RCA patient follows with depot manager Dr. Reyes. Patient yesterday developed pain discomfort. The shoulder blades last her for about 10 minutes. Took nitroglycerin. Pain came back again. Last her for about 45 minutes. No dizziness or lightheadedness no perspiration or shortness of breath. This was similar to presentation last year before she called the [facility]. Has admitted for the same. Otherwise patient got a good exercise tolerance. 09/18/2022: Stress echocardiogram negative. Cleared by cardiology for discharge. Follow up with her depot manager. Dr. Reyes Past medical history to include: Diabetes, hypertension, hyperlipidemia, CAD with 3stent to RCA in 2020 Social history: lives with her partner Dania. No history of smoking and alcohol Family history: Cannot obtain Physical examination: VITAL SIGNS: 98, 61, 18, 153 with 82, 96% room air GENERAL: comfortable EYES: Pupils equal. Conjunctiva normal. HEENT: External appearance of nose and ears normal, oral cavity grossly normal. NECK: JVD not raised; masses not palpable. HEART: First and second heart sounds are normal; no edema. LUNGS: Respiratory rate normal; clear to auscultation. ABDOMEN: Soft, nontender, liver spleen not palpable, no masses palpable. PSYCH: AO 3, mood and affect normal INVESTIGATIONS, reviewed in the clinical context: 2-D echocardiogram: EF 55%. Stress echocardiogram: Negative for ischemia 09/18/2022: Potassium 3.8 creatinine 0.63 LDL 39 WBC 6.6 hemoglobin 13.1 and platelets 292 potassium 4 BUN 23 creatinine 0.71 Troponin I 3 negative EKG tracing personally reviewed by me-normal sinus rhythm. Rate 74. Chest x-ray film personally reviewed by me-some cardiomegaly, lungs clear Assessment and plan: -Anterior chest wall pain. Possibly muscular skeletal. 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 Follow Accu-Cheks. -Essential hypertension On Lopressor, Zestoretic -Hyperlipidemia On Lipitor Disposition: Home
[2022-09-18] MEDS ORDERED: METOPROLOL TARTRATE 25 MG TAB PO SCH (16:00)
== END 2022-09-18 13:13 | disposition home or self-care (01) ==
LOC: EC 06:35 → 6NMEDSUR 08:54
PROVIDERS: ADMIT Hospitalist; ATTEND Hospitalist
DX: R07.89 Other chest pain (principal); I25.2 Old myocardial infarction; I11.9 Hypertensive heart disease without heart failure; I70.0 Atherosclerosis of aorta; E11.9 Type 2 diabetes mellitus without complications; E78.5 Hyperlipidemia, unspecified; I25.110 Atherosclerotic heart disease of native coronary artery with unstable angina pectoris; I71.21 Aneurysm of the ascending aorta, without rupture; I08.1 Rheumatic disorders of both mitral and tricuspid valves; Z95.5 Presence of coronary angioplasty implant and graft; Z79.84 Long term (current) use of oral hypoglycemic drugs; Z79.02 Long term (current) use of antithrombotics/antiplatelets; Z79.82 Long term (current) use of aspirin; Z79.899 Other long term (current) drug therapy; Z88.0 Allergy status to penicillin; Z88.8 Allergy status to other drugs, medicaments and biological substances; Z96.643 Presence of artificial hip joint, bilateral; Z98.42 Cataract extraction status, left eye; Z98.41 Cataract extraction status, right eye; Z80.9 Family history of malignant neoplasm, unspecified
CPT/HCPCS: 96376; 96365; 96366; 99285; 36415; 94760; 93005; 93306; 93351; 83880; 80061; 80053; 80048; 83735; 84484; 85025; 85049; 85610; 85730; 71046; G0378 ×2; J1644 ×2

== ENCOUNTER → 2024-02-26 | Outpatient (CLI) | payer MEDICARE, BC ==
--- NOTE | 2024-02-29 09:50 | MM ---
Reason for Exam: Screening (asymptomatic). Last screening mammogram was performed 12 month(s) ago. Patient History: Menarche at age 9. First Full-Term at age 17. Postmenopausal. Maternal aunt had breast cancer, age 80. Risk Values: Marcelina 5 year model risk: 1.3%. NCI Lifetime model risk: 2.0%. Prior Study Comparison: 02/07/2021 Bilateral Screening Mammogram, [facility]. 02/17/2022 Bilateral Screening Mammogram, [facility]. 02/19/2023 Bilateral MG 3D screening mammo w/cad, [facility]. Tissue Density: There are scattered areas of fibroglandular density. Findings: Analyzed By CAD. Right breast: There is no suspicious group of microcalcifications or new suspicious mass. Benign-appearing calcifications right breast. Left breast: There is no suspicious group of microcalcifications or new suspicious mass. Benign-appearing calcifications left breast. Overall Assessment: Benign, BI-RAD 2 Management: Screening Mammogram of both breasts in [address] [facility] will attempt to contact patient to return for supplemental views and ultrasound if indicated. Patient should continue monthly self-breast exams. A clinical breast exam by your physician is recommended on an annual basis. This exam should not preclude additional follow-up of suspicious palpable abnormalities. Note on Marcelina scores and lifetime risk: 1. A Marcelina score greater than 3% is considered moderate risk. If this is the case, consider specialist referral to assess eligibility for a risk reducing agent. 2. If overall lifetime risk for the development of breast cancer is 20% or higher, the patient may qualify for future screening with alternating mammogram and breast MRI. Electronically signed and approved by: Anuj Ken DO
== END | disposition home or self-care (01) ==
LOC: RADMAMWWP 13:25
PROVIDERS: ATTEND Family Medicine
DX: Z12.31 Encounter for screening mammogram for malignant neoplasm of breast (principal); Z78.0 Asymptomatic menopausal state; Z80.3 Family history of malignant neoplasm of breast
CPT/HCPCS: 77063; 77067

== ENCOUNTER 2024-07-06 08:55 | Day surgery (SDC) | payer MEDICARE, BC ==
[2024-07-04 10:33] VITALS: BMI 30.5
--- NOTE | 2024-07-06 08:36 | P.GSHP ---
History of Present Illness H&P Date: 07/06/24 CHIEF COMPLAINT: Colon screen HISTORY OF PRESENT ILLNESS: The patient is a 78-year-old female who presents for colon screen. Lower endoscopy was offered for further evaluation and management. PAST MEDICAL HISTORY: Please see list. PAST SURGICAL HISTORY: Please see list. MEDICATIONS: Please see list. ALLERGIES: Please see list. SOCIAL HISTORY: No illicit drug use FAMILY HISTORY: No reports of Crohn disease or ulcerative colitis. REVIEW OF ORGAN SYSTEMS: CONSTITUTIONAL: No reports of fevers or chills. PHYSICAL EXAM: VITAL SIGNS: Stable GENERAL: Well-developed pleasant in no acute distress. HEENT: No scleral icterus. Extraocular movements grossly intact. Moist buccal mucosa. NECK: Supple without lymphadenopathy. CHEST: Unlabored respirations. Equal bilateral excursions. CARDIOVASCULAR: Regular rate and rhythm. Distal 2+ pulses. ABDOMEN: Soft, nontender, nondistended. MUSCULOSKELETAL: No clubbing, cyanosis, or edema. ASSESSMENT: 1. Colon screen. PLAN: 1. Recommend proceeding with a lower endoscopy Past Medical History Past Medical History: Diabetes Mellitus, Hearing Disorder / Deafness, Hypertension, Myocardial Infarction ([place]), Osteoarthritis (OA) Additional Past Medical History / Comment(s): DM TYPE II, PT STATES SHE TAKES METFORMIN AT HOME. Last Myocardial Infarction Date:: 2020 History of Any Multi-Drug Resistant Organisms: None Reported Past Surgical History: Appendectomy, Heart Catheterization With Stent, Joint Replacement Additional Past Surgical History / Comment(s): Both knees & hips replaced; cataracts; colonoscopy. Stentsx3. Carpal tunnel bi lat. Past Anesthesia/Blood Transfusion Reactions: No Reported Reaction, Motion Sickness, Postoperative Nausea & Vomiting (PONV) Additional Past Anesthesia/Blood Transfusion Reaction / Comment(s): No hx of blood transfusion. Date of Last Stent Placement:: 2020 Smoking Status: Never smoker - Past Family History Daughter(s) Family Medical History: Cancer Additional Family Medical History / Comment(s): Type 1 uterine cnacer. Medications and Allergies Home Medications Medication Instructions Recorded Confirmed Type Lisinopril-Hctz 20-25 mg 1 tab PO QAM 02/16/17 07/04/24 History [Zestoretic 20-25] metFORMIN HCL [Glucophage] 500 mg PO BID 04/29/21 07/04/24 History Atorvastatin [Lipitor] 80 mg PO HS 30 Days #30 tab 05/02/21 07/04/24 Rx Metoprolol Tartrate [Lopressor] 25 mg PO BID 30 Days #60 tab 05/02/21 07/04/24 Rx Loratadine [Claritin] 10 mg PO HS 09/17/22 07/04/24 History Aspirin 81 mg PO QAM 07/04/24 07/04/24 History Allergies Allergy/AdvReac Type Severity Reaction Status Date / Time morphine AdvReac Unknown Verified 07/04/24 10:20 Penicillins AdvReac Unknown Verified 07/04/24 10:20 Childhood tramadol [From Ultram] AdvReac increased Verified 07/04/24 10:20 BP
[2024-07-06] MEDS: IV FLUID CONTINUATION 1,000 ML IV ONE (09:08)
[2024-07-06 09:21] VITALS: TEMP 97.8
[2024-07-06 09:28] LABS: Glucose,Whole Blood 125 mg/dL (70-110)
[2024-07-06] MEDS: LACTATED RINGERS 1,000 ML IV SCH (09:29)
[2024-07-06] MEDS ORDERED: PROPOFOL 10 MG/ML 20 ML VIAL IV ONE (09:44)
--- NOTE | 2024-07-06 10:24 | P.PCN ---
Date of Procedure: 07/06/24 Description of Procedure: PREOPERATIVE DIAGNOSIS: High risk personal adenomatous polyp Colonoscopy screening POSTOPERATIVE DIAGNOSIS: Colonoscopy screening. Diverticulosis, scattered. OPERATION: Colonoscopy to the cecum, ileocecal valve and appendiceal orifice. SURGEON: Krissy Roberson MD. ANESTHESIA: MAC. INDICATIONS: The patient is a 78-year-old female who presents for colonoscopy screening. Last colonoscopy 5 years. Benefits and risks were described and informed consent was obtained. DESCRIPTION OF PROCEDURE: The patient had undergone GoLytely prep. The patient had been brought into the operating room and laid in the left lateral decubitus position. After adequate intravenous sedation, the rectum was examined with 2% lidocaine jelly. No external hemorrhoids were encountered. The rectal tone was within normal limits. No lesions were palpated in the rectal vault. An Olympus colonoscope was advanced until the cecum, ileocecal valve and appendiceal orifice were clearly viewed. The prep was good. Scattered diverticulosis was encountered. Abdominal wall pressure was used to advance the scope through a tortuous colon. No colonic polyps were found. No evidence of focal colitis was found. Retroflexion of the scope demonstrated grade 2 internal hemorrhoids without active bleeding or inflammation. The colon was desufflated. The patient had tolerated the procedure well. Withdrawal time was over 6 minutes. FINDINGS: Aronchick preparation quality scale 2 (1-5) Internal hemorrhoids, grade 1 No external prolapsed hemorrhoids. No arteriovenous malformations. No adenomatous polyps. No focal colitis. Highly redundant sigmoid colon. RECOMMENDATIONS: Lower endoscopy in 5 years, 2028 or Cologuard. Plan - Discharge Summary Discharge Rx Participant: No New Discharge Prescriptions: Continue RX: Lisinopril-Hctz 20-25 mg [Zestoretic 20-25] 1 tab PO QAM RX: metFORMIN HCL [Glucophage] 500 mg PO BID RX: Aspirin 81 mg PO QAM RX: Atorvastatin [Lipitor] 80 mg PO HS 30 Days #30 tab RX: Metoprolol Tartrate [Lopressor] 25 mg PO BID 30 Days #60 tab RX: Loratadine [Claritin] 10 mg PO HS Discharge Medication List RX: Lisinopril-Hctz 20-25 mg [Zestoretic 20-25] 1 tab PO QAM 02/16/17 [History] RX: metFORMIN HCL [Glucophage] 500 mg PO BID 04/29/21 [History] RX: Atorvastatin [Lipitor] 80 mg PO HS 30 Days #30 tab 05/02/21 [Rx] RX: Metoprolol Tartrate [Lopressor] 25 mg PO BID 30 Days #60 tab 05/02/21 [Rx] RX: Loratadine [Claritin] 10 mg PO HS 09/17/22 [History] RX: Aspirin 81 mg PO QAM 07/04/24 [History] Follow up Appointment(s)/Referral(s): Krissy Roberson MD [STAFF PHYSICIAN] - As Needed Patient Instructions/Handouts: Diverticulosis (GEN) Activity/Diet/Wound Care/Special Instructions: Repeat colon screening in 5 years, 2028. May benefit from Cologuard. Discharge Disposition: HOME SELF-CARE
[2024-07-06 10:37] VITALS: BP 113/68; PULSE 80; RESP 18
== END 2024-07-06 11:16 | disposition home or self-care (01) ==
LOC: ORWHC2ENDO 08:55
PROVIDERS: ATTEND Surgery Plastic and Reconstructive Surgery
DX: Z12.11 Encounter for screening for malignant neoplasm of colon (principal); K57.30 Diverticulosis of large intestine without perforation or abscess without bleeding; E11.9 Type 2 diabetes mellitus without complications; I10 Essential (primary) hypertension; I25.2 Old myocardial infarction; M19.90 Unspecified osteoarthritis, unspecified site; Z79.84 Long term (current) use of oral hypoglycemic drugs; Z88.0 Allergy status to penicillin; Z88.5 Allergy status to narcotic agent; Z90.49 Acquired absence of other specified parts of digestive tract; Z79.899 Other long term (current) drug therapy
CPT/HCPCS: J2704; G0121